=== PATIENT | female | born 1960 | race African-American/Black ===

== ENCOUNTER 2016-08-31 09:38 | Emergency (ER) | payer MEDICAID ==
[~2016-08-31] VITALS: Ht 166.4 cm; Wt 77.0 kg
[~2016-08-31 09:38] MED LIST changes: -METR500T PO
[2016-08-31 09:40] VITALS: Ht 166.4 cm; Wt 77.0 kg
--- OUTSIDE RECORDS SUMMARY | 2016-08-31 09:42 | XMS REPORT ---
Author Author GENERATED, SYSTEM Organization Unknown Address Unknown Phone Unavailable Care Team Providers Care Bag Sewer Name Role Phone DO OLGA LIDIA, SHARIF SIMPSON Unavailable Reason For Visit Chief Complaint BLODY FLUID CELL COUNT [id number], JOINT,FLUID FOR CRYSTALS 7611, FLUID CULTURE,[id number] , GRAM STAIN [id number] Social History Functional Status Vital Signs Results Problems Encounter Diagnosis No relevant problems exist. Encounters Encounter Diagnosis No relevant problems exist. Plan of Care Procedures * Completed Right knee arthroscopy with partial lateral menisectomy, Right, by MD ENZO HASSAN, on 12/07/2015 9:38 AM * Completed Procedure Code: [id number] Procedure Name: not valued, on 12/07/2015 12 :00 AM * Completed Procedure Code: [id number] Procedure Name: not valued, on 12/07/2015 12: 00 AM Immunizations No immunizations administered or ordered. Hospital Course Hospital Discharge Instructions Allergies, Adverse Reactions, Alerts * Sulfa (Sulfonamide Antibiotics) causes Hives. * Latex Allergy has not been assessed. * IV Contrast Allergy has not been assessed. Medication Medication reconciliation has not been performed.
--- OUTSIDE RECORDS SUMMARY | 2016-08-31 09:42 | XMS REPORT | Continuity of Care Document ---
Author Author [facility] Organization [facility] Address Unknown Phone Unavailable Care Team Providers Care Dimension Warehouse Supervisor Name Role Phone ISAIAS GAYTAN MD Primary Care Physician [phone] Insurance Providers Payer Name Policy Number Subscriber Name Relationship Self Pay Supa Deutsch 19 Self Advance Directives Directive Response Recorded Date/Time Advanced Directives Type None 09/13/13 7:30pm Dr Diez Resuscitation Status Full Code 12/10/13 10:39am Problems Medical Problems Problem Onset Date Status Sciatic pain Unknown Active Sciatic pain Unknown Active Salivary disorder Unknown Active Pain, dental Unknown Active Salivary disorder Unknown Active Carpal tunnel syndrome Unknown Active Right wrist pain Unknown Active Carpal tunnel syndrome Unknown Active Lumbar back sprain Unknown Active Lumbar back sprain Unknown Active Medications Medication Dose Route Sig Days/Qty Instructions Order Date Discontinued Date Status Fluoxetine Hcl 80 Mg PO DAILY 09/03/13 Active Quetiapine Fumarate 400 Mg PO DAILY 09/03/13 Active Trazodone HCl 100 Mg PO BEDTIME 11/17/13 Active Ranitidine HCl 150 Mg PO DAILY 12/10/13 Active Multivitamin/Iron/Folic Acid 1 Tab PO DAILY 12/10/13 Active Social History Social History Problem Response Recorded Date/Time Smoking Status Never smoker 09/13/2013 7:34pm When did patient START smoking? AGE 26-27 12/10/2013 10:17am When did patient STOP smoking? 1 MONTH AGO 12/10/2013 10:17am Chewing Tobacco Status No 09/13/2013 7:34pm Hx Substance Use No 12/10/2013 10:17am Hx Alcohol Use No 12/10/2013 10:17am Has the pt used tobacco in the last 12 months Yes 12/10/2013 10:17am Hospital Discharge Instructions No hospital discharge instructions. Plan of Care No plan of care. Functional Status Query Response Date Recorded Physical Hygiene Self November 17, 2013 1:51pm Physical Hygiene Self November 17, 2013 1:51pm Allergies, Adverse Reactions, Alerts Allergen Type Severity Reaction Status Last Updated Sulfa (Sulfonamide Antibiotics) Allergy Severe HIVES AND SWELLING Active 11/17/13 Red dye Allergy Unknown HIVES,SWELLING Active 12/10/13 Immunizations Name Given Type Hx Influenza Vaccination Y FALL 2012 Historical Hx Pneumococcal Vaccination No Historical Hx Influenza Vaccination fall Historical Vital Signs Acute Vital Signs Vital Response Date/Time Temperature (Fahrenheit) 97.4 deg F (96.8 - 99.1) Temperature (Calculated Celsius) 36.26605 degrees C (36.0 - 37.3) Temperature Source Temporal Pulse Rate (adult) 80 bpm (60 - 100) Respiratory Rate 18 breaths/min (10 - 20) O2 Sat by Pulse Oximetry 97 % (90 - 100) Oxygen Delivery Method Room Air Blood Pressure 120/72 mm Hg Blood Pressure Source Automatic Cuff Height 5 ft 4.5 in Weight 188 lb Body Mass Index 31.0 kg/m^2 Results Test Source Date Result Interp. Ref. Range Comments Urine Bilirubin September 03, 2013 3:30pm Negative - Has specimen been collected/obtained? Y Urine Blood September 03, 2013 3:30pm Negative - Has specimen been collected/obtained? Y Urine Collection Type September 03, 2013 3:30pm Voided-not cc-midstr - Has specimen been collected/obtained? Y Urine Color September 03, 2013 3:30pm Yellow - Has specimen been collected/ obtained? Y Urine Glucose (UA) September 03, 2013 3:30pm Negative - Has specimen been collected/obtained? Y Urine Ketones September 03, 2013 3:30pm Negative - Has specimen been collected/obtained? Y Urine Leukocyte Esterase September 03, 2013 3:30pm Negative - Has specimen been collected/obtained? Y Urine Nitrite September 03, 2013 3:30pm Negative - Has specimen been collected/obtained? Y Urine Protein September 03, 2013 3:30pm Negative - Has specimen been collected/obtained? Y Urine Specific [place] September 03, 2013 3:30pm >=1.030 H - Has specimen been collected/obtained? Y Urine Turbidity September 03, 2013 3:30pm Clear - Has specimen been collected/obtained? Y Urine Urobilinogen September 03, 2013 3:30pm 0.2 EU/DL - Has specimen been collected/obtained? Y Urine pH September 03, 2013 3:30pm 5.5 - Has specimen been collected/ obtained? Y Urinalysis Comment September 03, 2013 3:30pm Microscopic not ind. - Has specimen been collected/obtained? Y Name: SUPA DEUTSCH Unit #: [id number] : 1960 Sex: F Loc / Svc: ED DOS: 11/08/13 Signed Report #: [id number] DIAGNOSTIC IMAGING REPORT TYPE OF EXAM: WRIST RIGHT 3 VIEW Dictated By: SAAD MONGE MD INDICATION: ITS.REASON: right wrist pain ^right wrist pain COMPARISON: none. WRIST RIGHT 3 VIEW: There is no evidence of fracture, dislocation, or joint narrowing. IMPRESSION: Negative x-rays . Procedures Procedure Status Date Provider(s) COLONOSCOPY AND BIOPSY completed 11/22/13 JARRETT BROWN MD, FACS, CWS Carpal tunnel release completed 12/13/13 GARLAND HEADLEY MD Encounters Encounter Location Date/Time Departed Emergency Room [facility] 11/17/13 1:33pm Departed Emergency Room [facility] 11/08/13 6:43pm Registered Clinic [facility] 10/20/13 9:59am Departed Emergency Room [facility] 09/21/13 2:42pm
--- OUTSIDE RECORDS SUMMARY | 2016-08-31 09:42 | XMS REPORT | Continuity of Care Document ---
Author Author [facility] Organization [facility] Address Unknown Phone Unavailable Support Name Relationship Address Phone SHARIF MEADOWS MD Caregiver [facility] [address] [place] [address] Unavailable ISAIAS GAYTAN MD Caregiver [address] [place] [address] [phone] ELISE JURADO Next Of Kin [address] [place] [address] Insurance Providers Payer Name Policy Number Subscriber Name Relationship [facility] [employer] [facility] [id number] Supa Deutsch 19 Self Advance Directives Directive Response Recorded Date/Time Advanced Directives Type None 09/13/13 7:30pm Problems Medical Problems Problem Onset Date Status Sciatic pain Unknown Active Sciatic pain Unknown Active Salivary disorder Unknown Active Pain, dental Unknown Active Salivary disorder Unknown Active Carpal tunnel syndrome Unknown Active Right wrist pain Unknown Active Carpal tunnel syndrome Unknown Active Lumbar back sprain Unknown Active Lumbar back sprain Unknown Active Right wrist pain Unknown Active Bilateral thumb pain Unknown Active Medications Medication Dose Route Sig Days/Qty Instructions Order Date Discontinued Date Status Fluoxetine Hcl 80 Mg PO DAILY 09/03/13 Active Quetiapine Fumarate 400 Mg PO DAILY 09/03/13 Active Trazodone HCl 100 Mg PO BEDTIME 11/17/13 Active Ranitidine HCl 150 Mg PO DAILY 12/10/13 Active [Liver Detox] TWICE A DAY 04/30/14 Active Hydrocodone/Apap 7.5/325 Mg 1 Tab PO Every 6 Hours PRN PAIN 20 Qty 02/02 Active Social History Social History Problem Response Recorded Date/Time Chewing Tobacco Status No 09/13/2013 7:34pm Hx Substance Use No 04/30/2014 10:53am Hx Alcohol Use No 04/30/2014 10:53am Has the pt used tobacco in the last 12 months Yes 12/10/2013 10:17am Tobacco Usage smoke 09/16/2013 6:29pm Query Response Start Date Stop Date Smoking Status Never smoker Hospital Discharge Instructions No hospital discharge instructions. Plan of Care No plan of care. Functional Status Query Response Date Recorded Physical Hygiene Self April 30, 2014 10:53am Disabilities None April 30, 2014 10:53am Devices Used None April 30, 2014 10:53am Dressing Self April 30, 2014 10:53am Ambulation Self April 30, 2014 10:53am Diet Self April 30, 2014 10:53am Mental Status Alert April 30, 2014 10:53am Disabilities None April 30, 2014 10:53am Devices Used None April 30, 2014 10:53am Physical Hygiene Self April 30, 2014 10:53am Dressing Self April 30, 2014 10:53am Ambulation Self April 30, 2014 10:53am Diet Self April 30, 2014 10:53am Allergies, Adverse Reactions, Alerts Allergen Type Severity Reaction Status Last Updated Sulfa (Sulfonamide Antibiotics) Allergy Severe HIVES AND SWELLING Active 04/30/14 D&c red no. 7 Allergy Unknown HIVES,SWELLING Active 04/30/14 Immunizations Name Given Type Hx Influenza Vaccination Y 02/01 Historical Hx Pneumococcal Vaccination No Historical Hx Influenza Vaccination Y 02/01 Historical Vital Signs Acute Vital Signs Vital Response Date/Time Temperature (Fahrenheit) 97 deg F (96.8 - 99.1) Temperature (Calculated Celsius) 36.1140 degrees C (36.0 - 37.3) Pulse Rate (adult) 93 bpm (60 - 100) Respiratory Rate 20 breaths/min (10 - 20) O2 Sat by Pulse Oximetry 95 % (90 - 100) Blood Pressure 134/86 mm Hg Height (Feet) 5 feet Height (Inches) 4.50 inches Weight (Kilograms) 90.600 kg Body Mass Index (BMI) 33.0 Results Test Source Date Result Interp. Ref. [...] Has specimen been collected/obtained? Y Urine Specific [place] September 03, 2013 3:30pm >=1.030 H - [...] ind. - Has specimen been collected/obtained? Y Procedures No known history of procedures. Encounters Encounter Location Date/Time Departed Emergency Room [facility] 04/30/14 8:34am Departed Emergency Room [facility] 02/09/14 6:39am Recent Diagnosis
--- OUTSIDE RECORDS SUMMARY | 2016-08-31 09:43 | XMS REPORT | Summary of Care ---
Author Author Ab Hyde M.D. Unknown Address Unknown Phone Unavailable Care Team Providers Care Elevator Constructor Supervisor Name Role Phone Manuel Tavarez D.O. Unavailable Unavailable Piper Long APRN Unavailable Unavailable Jaida Hyde M.D. 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 difficile colitis (008.45, A04.7) Status: Active Sciatica of right side (724.3, M54.31) Status: Active Urticaria (708.9, L50.9) Status: Active Impetigo (684, L01.00) Status: Active Strain of right quadriceps muscle, fascia and tendon, init Status: Active Tear of medial meniscus of right knee, initial encounter Status: Active Nausea (787.02, R11.0) Status: Active Medial meniscus tear (836.0, S83.249A) Status: Active Status post knee surgery (V45.89, Z98.890) Status: Active Localized osteoarthritis of right knee (715.36, M17.9) Status: Active Effusion of bursa of right knee (719.06, M25.461) Status: Active Right knee pain (719.46, M25.561) Status: Active Need for prophylactic measure (V07.9, Z41.8) Status: Active Post-op pain (338.18, G89.18) Status: Active Aftercare following knee joint replacement surgery (V54.81, Z47.1) Status: Active Medications Name Dates Details SEROquel 400 MG Oral Tablet TAKE 1 TABLET AT BEDTIME. Manuel Tavarez D.O. * Start 30-Mar-2015 Active TraZODone HCl - 100 MG Oral Tablet TAKE 1 TABLET AT BEDTIME. * Quantity: 60 Refills: 0 Corby D.Manuel Hendricks * Start 30-Mar-2015 Active MetFORMIN HCl - 1000 MG Oral Tablet TAKE ONE TABLET BY MOUTH TWICE DAILY WITH MEALS. * Quantity: 180 Refills: 0 Corby Pardo.Manuel Hendricks * Start 27-May-2016 Active Multiple Vitamin TABS TAKE 1 TABLET DAILY. * Quantity: 90 Refills: 0 Corby Pardo.Manuel Hendricks * Start 26-May-2015 Active PROzac 40 MG Oral Capsule TAKE 2 CAPSULES DAILY. * Refills: 0 Corby Pardo.Manuel Hendricks * Start 26-May-2015 Active Mupirocin 2 % External Ointment APPLY SPARINGLY TO AFFECTED AREA(S) TWICE DAILY * Quantity: 1 Refills: 0 Piper Long APRN * Start 03-Jul-2015 Active 22 GM Tube Omeprazole 20 MG Oral Capsule Delayed Release TAKE ONE CAPSULE BY MOUTH ONCE DAILY IN THE MORNING BEFORE BREAKFAST. * Quantity: 30 Refills: 3 Corby Pardo.Manuel Hendricks * Start 15-May-2016 Active Supplies PHYSICAL THERAPY, EVALUATE AND TREAT DX RIGHT QUAD STRAIN * Quantity: 1 Refills: 0 Corby Pardo.Manuel Hendricks * Start 19-Sep-2015 Active Test Strips CHECK BLOOD SUGAR TWICE A DAY, RELION CONFIRM/MICRO GLU TEST DX E11.9 * Quantity: 300 Refills: 3 Corby Pardo.Manuel Hendricks * Start 21-Nov-2015 Active Xarelto 10 MG Oral Tablet Take 1 tablet daily * Quantity: 10 Refills: 0 Ab Hyde M.D. Start 13-Jun-2016 Active Hydrocodone-Acetaminophen 10-325 MG Oral Tablet Take 1/2 - 1 tablet PO q 4-6 hrs PRN pain * Quantity: 60 Refills: 0 Ab Hyde M.D. Start 13-Jun-2016 Active Oxycodone-Acetaminophen 10-325 MG Oral Tablet 1/2 to 1 tab po q 4-6 prn * Quantity: 50 Refills: 0 Ab Hyde M.D. Start 02-Jul-2016 Active Zolpidem Tartrate 10 MG Oral Tablet TAKE 1 TABLET AT BEDTIME NEEDED. * Quantity: 30 Refills: 0 Ab Hyde M.D. * Chiki 02-Jul-2016 Active Allergies and Adverse Reactions Name Dates Details Sulfa Drugs (Allergy) Status: Active Past Medical History Name Dates Details History of Effusion of bursa of right knee (719.06, M25.461) Status: Resolved Procedures Procedure Dates Details History of Hysterectomy ORTHO KNEE RIGHT (3 VIEWS ONLY) Ordered: 22-May-2016 ORTHO KNEE RIGHT (3 VIEWS ONLY) Ordered: 28-Jun-2016 Immunization Name Dates Details Immunizations not documented Social History Name Dates Details - Status: Name Dates Details Current every day smoker Current every day smoker Vital Signs Date Test Result Details No Known Vitals to report Results Date Description Value Details Results not documented Plan of Care Name Dates Details Planned Observations Planned Goals not documented Interventions Provided Medication Changes* Oxycodone-Acetaminophen 10-325 MG Oral Tablet - Start * Zolpidem Tartrate 10 MG Oral Tablet - Start Labs/Procedures/Imaging* ORTHO KNEE RIGHT (3 VIEWS ONLY); To be Done: 02 Jul 2016 Instructions Name Dates Details Instructions not documented Encounters Appointment; Ab Hyde M.D. Encounter Diagnosis: Problem not documented On 20-Jun-2016 13:45 Appointment; Ab Hyde M.D. Encounter Diagnosis: Problem not documented On 28-May-2016 09:45 Appointment; Bhavesh Arreguin M.D. Encounter Diagnosis: Problem not documented On 22-May-2016 13:00 Appointment; Bhavesh Arreguin M.D. Encounter Diagnosis: Problem not documented On 27-Mar-2016 13:45 Appointment; Bhavesh Arreguin M.D. Encounter Diagnosis: Problem not documented On 19-Feb-2016 10:15 Appointment; Bhavesh Arreguin M.D. Encounter Diagnosis: Problem not documented On 12-Feb-2016 14:00 Appointment; Bhavesh Arreguin M.D. Encounter Diagnosis: Problem not documented On 05-Feb-2016 09:30 Appointment; Bhavesh Arreguin M.D. Encounter Diagnosis: Problem not documented On 24-Jan-2016 11:15 Appointment; Bhavesh Arreguin M.D. Encounter Diagnosis: Problem not documented On 27-Dec-2015 11:00 Appointment; Bhavesh Arreguin M.D. Encounter Diagnosis: Problem not documented On 13-Dec-2015 12:45 Appointment; Bhavesh Arreguin M.D. Encounter Diagnosis: Problem not documented On 06-Dec-2015 12:45 Appointment; Bhavesh Arreguin M.D. Encounter Diagnosis: Problem not documented On 22-Nov-2015 09:30 Appointment; Becky Rodriguez P.T.A. Encounter Diagnosis: Problem not documented On 20-Nov-2015 10:30 Appointment; Becky Rodriguez P.T.A. Encounter Diagnosis: Problem not documented On 16:30 Appointment; Manuel Tavarez D.O. Encounter Diagnosis: Problem not documented On 16:00 Appointment; Becky Rodriguez P.T.A. Encounter Diagnosis: Problem not documented On 15:30 Appointment; Aris Knowles P.T. Encounter Diagnosis: Problem not documented On 13:00 Appointment; Manuel Tavarez D.O. Encounter Diagnosis: Problem not documented On 14:30 Appointment; Manuel Tavarez D.O. Encounter Diagnosis: Problem not documented On 14:00 Appointment; Manuel Tavarez D.O. Encounter Diagnosis: Problem not documented On 19-Sep-2015 10:45 Appointment; Piper Long A.P.R.N. Encounter Diagnosis: Problem not documented On 30-Jun-2015 14:20 Appointment; Manuel Tavarez D.O. Encounter Diagnosis: Problem not documented On 30-Jun-2015 14:00 Appointment; Manuel Tavarez D.O. Encounter Diagnosis: Problem not documented On 23-Jun-2015 10:30 Appointment; Manuel Tavarez D.O. Encounter Diagnosis: Problem not documented On 26-May-2015 11:00 Appointment; Manuel Tavarez D.O. Encounter Diagnosis: Problem not documented On 18-May-2015 10:15 Appointment; Aris Knowles P.T. Encounter Diagnosis: Problem not documented On 08-May-2015 11:30 Appointment; Aris Knowles P.T. Encounter Diagnosis: Problem not documented On 17-Apr-2015 08:30 Appointment; Manuel Tavarez D.O. Encounter Diagnosis: Problem not documented On 30-Mar-2015 09:15
--- OUTSIDE RECORDS SUMMARY | 2016-08-31 09:44 | XMS REPORT | Continuity of Care Document ---
Author Author [facility] Organization [facility] Address Unknown Phone Unavailable Allergies Active Description Code Type Severity Reaction Onset Reported/Identified Relationship to Patient Clinical Status Yes Sulfa (Sulfonamide Antibiotics Drug Allergy Adverse Reaction 05/17/2009 Yes red dye Drug Allergy Adverse Reaction 11/03/2011 Yes No Known Food Allergies Food Allergy 07/02/2012 Medications Problems Date Dx Coded Attending Type Code Diagnosis Diagnosed By 02/06/2012 Cesar Nelson MD 787.91 DIARRHEA 07/02/2012 Clarke Dela Cruz MD Final 305.1 TOBACCO USE DISORDER 07/02/2012 Clarke Dela Cruz MD Final 562.10 COLON DIVERTICULOSIS 07/02/2012 Clarke Dela Cruz MD Admitting 789.03 RLQ ABDOMINAL PAIN 07/02/2012 Clarke Dela Cruz MD 789.09 ABDOMINAL PAIN-SITE NEC 08/07/2012 Adan ALVARADO, J Blayne F 296.20 DEPRESS DISORDER-UNSPEC 08/07/2012 Adan ALVARADO, J Blayne F 305.1 TOBACCO USE DISORDER 08/07/2012 Adan ALVARADO, J Blayne F 305.20 CANNABIS ABUSE-UNSPEC 08/07/2012 Adan ALVARADO, J Blayne F 530.81 ESOPHAGEAL REFLUX 08/07/2012 Adan ALVARADO, J Blayne F 535.50 UNSP GASTRITIS GASTRODUODENITIS W/O MENTN HEMORG 08/07/2012 Adan ALVARADO, J Blayne F 584.9 ACUTE RENAL FAILURE, UNSPECIFIED 08/07/2012 Adan ALVARADO, J Blayne A 789.06 ABDOMINAL PAIN, EPIGASTRIC Procedures Results Test Result Range URINE CULTURE - 05/04/12 00:00 Uncategorized UR TEST - 05/04/12 10:53 UR TEST NEGATIVE NEGATIVE UA MICROSCOPIC - 05/04/12 10:53 UA BACTERIA 5+ NEGATIVE UA EPITHELIAL CELLS 5+ epi/hpf 0 - 1+ UA RBC 20-50 rbc/hpf 0 - 3 UA VOLUME FOR EXAM 12.0 mL (12mL STD) UA WBC PACKED FIELD wbc/hpf 0 - 5 WBC CLUMPS PRESENT NEGATIVE WET MOUNT - 05/04/12 12:30 Uncategorized GRAM STAIN - CHLAMYDIA DNA BY PCR - 05/04/12 12:30 Uncategorized CBC - 08/07/12 05:26 MEAN CELL HGB 31.1 pg 27.0-33.0 MEAN CELL HGB CONCENTRATION 32.1 g/dL 32.0-37.0 MEAN CELL VOLUME 96.9 fl 80.0-100.0 RED BLOOD CELL 4.50 m/cumm 4.00-6.00 RED CELL DISTRIBUTION WIDTH 13.8 % 11.0- 15.6 WHITE BLOOD CELL 10.0 k/cumm 5.0-10.0 HEMOGLOBIN 14.0 gm/dL 12.0-16.0 HEMATOCRIT 43.6 % 37.0-47.0 PLATELET COUNT 266 k/cumm 150-400 LIPASE - 08/07/12 05:26 LIPASE 220 Units/L 73-393 HEPATIC FUNCTION PANEL - 08/07/12 05:26 BILI UNCONJUGATED 0.2 mg/dL 0.0-0.7 AST/SGOT 17 Units/L 10-37 ALT/SGPT 23 Units/L < 66 TOTAL PROTEIN 7.7 gm/dL 6.4-8.2 ALBUMIN 3.8 gm/dL 3.4-5.0 BILI TOTAL 0.3 mg/dL 0.0-1.0 ALKALINE PHOSPHATASE TOTAL 128 Units/L 50 -136 BILI CONJUGATED 0.1 mg/dL 0.0-0.3 D-DIMER QUANT - 08/07/12 05:26 D-DIMER QUANT < 150 ng/mL 0-229 CHEM/HEM PROFILE-BEDSIDE - 08/07/12 05:30 POTASSIUM 3.9 mmol/L 3.5-5.3 METHOD Bedside ANION GAP 15 mmol/L 10-20 METHOD Bedside GLUCOSE 108 mg/dL 70-99 BLOOD UREA NITROGEN 18 mg/dL 7-20 CREATININE 1.2 mg/dL 0.6-1.0 HEMOGLOBIN 13.9 gm/dL 12.0-16.0 HEMATOCRIT 41.0 % 37.0-47.0 SODIUM 141 mmol/L 135-148 CHLORIDE 107 mmol/L 98-110 CARBON DIOXIDE 24 mmol/L 21-32 CALCIUM IONIZED 4.9 mg/dL 4.5-5.3 TROPONIN I BEDSIDE - 08/07/12 05:33 METHOD Bedside TROPONIN I < 0.04 ng/mL < 0.11 MRSA SURVEILLANCE SCREEN - 08/07/12 08:59 Uncategorized CREATINE KINASE (CK/CPK) - 08/07/12 12:30 CREATINE KINASE (CK/CPK) 64 Units/L < 193 CK MB - 08/07/12 12:30 CK MB 0.6 ng/mL < 4.0 TROPONIN I - 08/07/12 12:30 TROPONIN I < 0.02 ng/mL < 0.07 CREATINE KINASE (CK/CPK) - 08/07/12 18:00 CREATINE KINASE (CK/CPK) 56 Units/L < 193 CK MB - 08/07/12 18:00 CK MB 0.8 ng/mL < 4.0 TROPONIN I - 08/07/12 18:00 TROPONIN I < 0.02 ng/mL < 0.07 RENAL FUNCTION PANEL - 08/08/12 02:45 POTASSIUM 4.2 mmol/L 3.5-5.3 EST GFR (MDRD) > 60 mL/min > 59 ANION GAP 8 mmol/L 5-15 EST CrCl (CG) 54 mL/min > 59 GLUCOSE 89 mg/dL 70-99 CALCIUM 8.3 mg/dL 8.5-10.1 BLOOD UREA NITROGEN 12 mg/dL 7-20 CREATININE 1.1 mg/dL 0.6-1.0 SODIUM 142 mmol/L 135-148 CHLORIDE 108 mmol/L 98-110 CARBON DIOXIDE 26 mmol/L 21-32 ALBUMIN 3.1 gm/dL 3.4-5.0 PHOSPHORUS 3.4 mg/dL 2.5-4.9 LIPID PANEL - 08/08/12 02:45 CHOLESTEROL/HDL RATIO 7.2 < 5.0 LDL CHOLESTEROL 132 mg/dL < 100 VLDL CHOLESTEROL 48 mg/dL < 30 TRIGLYCERIDES 242 mg/dL < 150 CHOLESTEROL 209 mg/dL < 200 HDL CHOLESTEROL 29 mg/dL > 39 MAGNESIUM - 08/08/12 02:45 MAGNESIUM 1.8 mg/dL 1.8-2.4 THYROID STIM HORMONE (TSH) - 08/08/12 02:45 THYROID STIM HORMONE (TSH) 2.15 uIU/mL 0.34-4.82 CBC W/DIFF - 08/08/12 02:49 EOSINOPHIL # 0.2 k/cumm 0.1-0.5 EOSINOPHIL % 3 % 2-4 GRANULOCYTE # 3.4 k/cumm 2.0-9.0 GRANULOCYTE % 52 % 50-75 LYMPHOCYTE # 2.4 k/cumm 1.0-4.0 LYMPHOCYTE % 37 % 20-30 MEAN CELL HGB 31.2 pg 27.0-33.0 MEAN CELL HGB CONCENTRATION 31.6 g/dL 32.0-37.0 MEAN CELL VOLUME 99.0 fl 80.0-100.0 MONOCYTE # 0.5 k/cumm 0.1-1.0 MONOCYTE % 8 % 4-6 RED BLOOD CELL 3.97 m/cumm 4.00-6.00 RED CELL DISTRIBUTION WIDTH 13.5 % 11.0- 15.6 WHITE BLOOD CELL 6.5 k/cumm 5.0-10.0 HEMOGLOBIN 12.4 gm/dL 12.0-16.0 HEMATOCRIT 39.3 % 37.0-47.0 PLATELET COUNT 217 k/cumm 150-400 CREATINE KINASE (CK/CPK) - 08/08/12 02:49 CREATINE KINASE (CK/CPK) 53 Units/L < 193 CK MB - 08/08/12 02:49 CK MB 0.7 ng/mL < 4.0 TROPONIN I - 08/08/12 02:49 TROPONIN I < 0.02 ng/mL < 0.07 URINALYSIS WITH MICROSCOPIC - 08/08/12 10:40 UA LEUKOCYTE ESTERASE DIPSTICK NEGATIVE NEGATIVE UA NITRITE DIPSTICK NEGATIVE NEGATIVE UA PROTEIN DIPSTICK NEGATIVE NEGATIVE UA GLUCOSE DIPSTICK NEGATIVE NEGATIVE UA KETONE DIPSTICK NEGATIVE NEGATIVE UA UROBILINOGEN DIPSTICK NORMAL NORMAL UA BILIRUBIN DIPSTICK NEGATIVE NEGATIVE UA BLOOD DIPSTICK NEGATIVE NEGATIVE UA RBC 0-3 rbc/hpf 0 - 3 UA VOLUME FOR EXAM 12.0 mL (12mL STD) UA WBC 0 wbc/hpf 0 - 5 UA SPECIFIC GRAVITY 1.009 1.015-1.025 UR PH 5.0 5.0-7.0 UR DRUGS OF ABUSE SCREEN - 08/08/12 10:40 UR AMPHETAMINES SCREEN NEG (<1000 ng/mL) NEGATIVE UR BARBITURATE SCREEN NEG (< 200 ng/mL) NEGATIVE DRUGS OF ABUSE SCREEN COMMENT UR OPIATES SCREEN POS (> 300 ng/mL) NEGATIVE UR PHENCYCLIDINE (PCP) SCREEN NEG (< 25 ng/mL) NEGATIVE UR CANNABINOIDS (THC) SCREEN NEG (< 50 ng/mL) NEGATIVE UR COCAINE METABOLITE SCREEN NEG (< 300 ng/mL) NEGATIVE UR METHADONE SCREEN NEG (< 300 ng/mL) NEGATIVE UR BENZODIAZEPINE SCREEN NEG (< 200 ng/mL) NEGATIVE URINE CULTURE - 08/08/12 10:40 Uncategorized TYPE AND SCREEN - 06/17/16 07:40 ANTIBODY SCREEN (Indirect Wilson) NEG NRG *ABO GROUP O NRG RH TYPE POS NRG CBC WITH PLATELET AND DIFFERENTIAL - 06/17/16 08:40 SEGS 44.6 % NRG *BASOPHILS 0.6 % NRG *EOSINOPHILS 2.7 % NRG AUTOMATED DIFF PERFORMED NRG *LYMPHOCYTES 43.4 % NRG *MONOCYTES 8.7 % NRG *ABSOLUTE BASOPHILS 0.00 10*3/uL 0.00- 0.20 *ABSOLUTE EOSINOPHILS 0.20 10*3/uL 0.00- 0.50 *ABSOLUTE LYMPHOCYTES 3.10 10*3/uL 1.00- 3.00 *ABSOLUTE MONOCYTES 0.60 10*3/uL 0.30- 1.00 *ABSOLUTE NEUTROPHILS 3.20 10*3/uL 1.80- 7.80 MPV 7.5 fL 7.4-10.4 PLATELETS 247 10*3/uL 159-386 WBC 7.2 10*3/uL 3.6-11.2 RBC 4.25 3.63-4.92 HEMOGLOBIN 13.1 11.0-14.3 HEMATOCRIT 39.6 % 31.2-41.9 MCV 93.2 fL 79.0-98.0 MCH 30.8 pg 27.0-33.0 MCHC 33.0 32.0-36.0 RDW 14.7 % 12.3-17.0 RDWSD 48.6 37.1-47.8 URINALYSIS (CULTURE PRN) - 06/18/16 03:26 *URINE APPEARANCE CLEAR CLEAR *URINE BILIRUBIN NEGATIVE NEGATIVE *URINE BLOOD SMALL NEGATIVE *URINE GLUCOSE NEGATIVE NEGATIVE *URINE KETONES NEGATIVE NEGATIVE *URINE LEUKOCYTES NEGATIVE NEGATIVE *URINE NITRITES NEGATIVE NEGATIVE URINE PH 5.5 5.0-8.0 *URINE PROTEIN NEGATIVE NEGATIVE URINE SPECIFIC GRAVITY 1.025 <=1.005->= 1.030 *URINE UROBILINOGEN 0.2 0.2-1.0 *URINE COLOR YELLOW STRAW/YELL/DK YELL URINE MICROSCOPIC - 06/18/16 03:26 RBC 0-1 /[HPF] 0-1 MUCOUS THREADS MANY /[LPF] NEGATIVE MICROSCOPIC EXAM PERFORMED PERFORMED NRG SQUAMOUS EP. CELLS FEW /[LPF] NEG-FEW BACTERIA FEW /[HPF] NEGATIVE HEMOGLOBIN AND HEMATOCRIT - 06/18/16 05:14 HEMOGLOBIN 10.7 11.0-14.3 HEMATOCRIT 32.0 % 31.2-41.9 BASIC METABOLIC PANEL - 06/18/16 05:14 SODIUM 135 mmol/L 136-145 POTASSIUM 4.4 mmol/L 3.5-5.1 CHLORIDE 101 mmol/L 98-107 TCO2 25.8 mmol/L 21.0-32.0 *ANION GAP 8.2 mmol/L 8.0-16.0 BUN 14 7-18 CREATININE 1.00 0.55-1.02 *BUN/CREATININE RATIO 14.0 9.1-17.0 GLUCOSE 126 65-99 CALCIUM 8.7 8.5-10.1 GFR ESTIMATION - 06/18/16 05:14 *GFR EST NON AFR JORDANIAN 63 mL/min NRG *GRFA EST AFR AMER 74 mL/min NRG HEMOGLOBIN AND HEMATOCRIT - 06/19/16 05:04 HEMOGLOBIN 9.4 11.0-14.3 HEMATOCRIT 27.8 % 31.2-41.9 BASIC METABOLIC PANEL - 06/19/16 05:04 SODIUM 134 mmol/L 136-145 POTASSIUM 4.0 mmol/L 3.5-5.1 CHLORIDE 99 mmol/L 98-107 TCO2 26.9 mmol/L 21.0-32.0 *ANION GAP 8.1 mmol/L 8.0-16.0 BUN 8 7-18 CREATININE 0.90 0.55-1.02 *BUN/CREATININE RATIO 8.9 9.1-17.0 GLUCOSE 121 65-99 CALCIUM 8.6 8.5-10.1 GFR ESTIMATION - 06/19/16 05:04 *GFR EST NON AFR JORDANIAN 72 mL/min NRG *GRFA EST AFR AMER 84 mL/min NRG Encounters
--- OUTSIDE RECORDS SUMMARY | 2016-08-31 09:44 | XMS REPORT ---
Author Author GENERATED, SYSTEM Organization Unknown Address Unknown Phone Unavailable Care Team Providers Care Instructional Paraprofessional Name Role Phone DO DUGGAN ROBERT PP Unavailable Reason For Visit Reason for Visit from 06/17/2016 6:30 AM:* Pt Stated Reason for Adm : "right total knee" Chief Complaint OSTEOARTHRITIS OF KNEE Social History Social History from 06/19/2016 2:05 PM:* Tobacco Use? : Current Everyday Smoker Social History from 06/17/2016 6:30 AM:* Tobacco Use? : Current Everyday Smoker Functional Status Functional Status from 06/19/2016 9:45 AM:* LOC : Alert * Oriented To : Person,Place,Time,Event * Weight Bearing Status : Full * Assist Level : Independent * # Assists : 1 Functional Status from 06/19/2016 9:37 AM:* # Assists : 1 Functional Status from 06/18/2016 9:15 PM:* LOC : Alert * Oriented To : Person,Place,Time,Event * Weight Bearing Status : Full * Assist Level : Independent * # Assists : 1 Functional Status from 06/18/2016 12:33 PM:* # Assists : 1 Functional Status from 06/18/2016 9:04 AM:* Oriented To : Person,Place,Time Functional Status from 06/18/2016 7:55 AM:* LOC : Alert * Oriented To : Person,Place,Time,Event * Weight Bearing Status : Full * Assist Level : Partial * # Assists : 1 Functional Status from 06/17/2016 7:25 PM:* LOC : Alert * Oriented To : Person,Place,Time,Event * Weight Bearing Status : Full * Assist Level : Partial * # Assists : 1 Functional Status from 06/17/2016 7:09 PM:* # Assists : 1 Functional Status from 06/17/2016 12:10 PM:* LOC : Alert * Oriented To : Person,Place,Time,Event * Weight Bearing Status : Full * Assist Level : Partial * # Assists : 2 Functional Status from 06/17/2016 11:24 AM:* LOC : Drowsy Functional Status from 06/17/2016 10:37 AM:* LOC : Drowsy Functional Status from 06/17/2016 6:30 AM:* LOC : Alert * Oriented To : Person,Place,Time,Event * Weight Bearing Status : Full * Assist Level : Independent * # Assists : Independent Vital Signs Hospital Vital Signs from 06/19/2016 3:56 PM:* Height : 5/4.5 ft,in * Temperature : 98.0 F * Pulse : 110 * Respirations : 16 * BP : 105/62 Hospital Vital Signs from 06/19/2016 6:06 AM:* Height : 5/4.5 ft,in * Temperature : 98.9 F * Pulse : 109 * Respirations : 16 * BP : 108/66 Hospital Vital Signs from 06/19/2016 12:03 AM:* Height : 5/4.5 ft,in * Temperature : 99.8 F * Pulse : 98 * Respirations : 16 * BP : 138/77 Hospital Vital Signs from 06/18/2016 3:29 PM:* Height : 5/4.5 ft,in * Temperature : 99.0 F * Pulse : 93 * Respirations : 16 * BP : 130/82 Hospital Vital Signs from 06/18/2016 9:59 AM:* Height : 5/4.5 ft,in Hospital Vital Signs from 06/18/2016 6:35 AM:* Height : 5/4.5 ft,in * Temperature : 98.5 F * Pulse : 93 * Respirations : 16 * BP : 132/87 Hospital Vital Signs from 06/17/2016 10:04 PM:* Height : 5/4.5 ft,in * Temperature : 99.3 F * Pulse : 93 * Respirations : 18 * BP : 159/94 Hospital Vital Signs from 06/17/2016 7:09 PM:* Height : 5/4.5 ft,in * Temperature : 99.8 F * Pulse : 99 * Respirations : 20 * BP : 153/84 Hospital Vital Signs from 06/17/2016 6:12 PM:* Height : 5/4.5 ft,in * Temperature : 98.7 F * Pulse : 96 * Respirations : 18 * BP : 154/98 Hospital Vital Signs from 06/17/2016 4:23 PM:* Height : 5/4.5 ft,in * Temperature : 98.7 F * Pulse : 102 * Respirations : 18 * BP : 140/85 Hospital Vital Signs from 06/17/2016 3:20 PM:* Height : 5/4.5 ft,in * Temperature : 97.2 F * Pulse : 98 * Respirations : 18 * BP : 131/89 Hospital Vital Signs from 06/17/2016 2:20 PM:* Height : 5/4.5 ft,in * Pulse : 98 * Respirations : 18 * BP : 126/71 Hospital Vital Signs from 06/17/2016 1:50 PM:* Height : 5/4.5 ft,in * Pulse : 100 * Respirations : 18 * BP : 127/77 Hospital Vital Signs from 06/17/2016 1:20 PM:* Height : 5/4.5 ft,in * Pulse : 107 * Respirations : 18 * BP : 125/76 Hospital Vital Signs from 06/17/2016 1:05 PM:* Height : 5/4.5 ft,in * Pulse : 108 * Respirations : 18 * BP : 133/86 Hospital Vital Signs from 06/17/2016 12:50 PM:* Height : 5/4.5 ft,in * Pulse : 96 * Respirations : 18 * BP : 119/72 Hospital Vital Signs from 06/17/2016 12:35 PM:* Height : 5/4.5 ft,in * Pulse : 93 * Respirations : 18 * BP : 107/71 Hospital Vital Signs from 06/17/2016 12:20 PM:* Height : 5/4.5 ft,in * Temperature : 97.4 F * Pulse : 87 * Respirations : 18 * BP : 111/73 Hospital Vital Signs from 06/17/2016 11:50 AM:* Heart Rate : 92 * Resp Rate : 12 * Systolic BP (mmHg) : 101 * Diastolic BP (mmHg) : 72 * Mean BP (mmHg) : 86 * O2 Saturation (%) : 97 Hospital Vital Signs from 06/17/2016 11:40 AM:* Heart Rate : 93 * Resp Rate : 13 * Systolic BP (mmHg) : 102 * Diastolic BP (mmHg) : 69 * Mean BP (mmHg) : 80 * O2 Saturation (%) : 96 Hospital Vital Signs from 06/17/2016 11:35 AM:* Temp : 97.7 * Heart Rate : 91 * Resp Rate : 12 * Systolic BP (mmHg) : 109 * Diastolic BP (mmHg) : 70 * Mean BP (mmHg) : 81 * O2 Saturation (%) : 96 Hospital Vital Signs from 06/17/2016 11:30 AM:* Heart Rate : 90 * Resp Rate : 13 * Systolic BP (mmHg) : 103 * Diastolic BP (mmHg) : 62 * Mean BP (mmHg) : 79 * O2 Saturation (%) : 96 Hospital Vital Signs from 06/17/2016 11:25 AM:* Heart Rate : 91 * Resp Rate : 12 * Systolic BP (mmHg) : 107 * Diastolic BP (mmHg) : 69 * Mean BP (mmHg) : 84 * O2 Saturation (%) : 96 Hospital Vital Signs from 06/17/2016 11:20 AM:* Heart Rate : 91 * Resp Rate : 14 * Systolic BP (mmHg) : 108 * Diastolic BP (mmHg) : 69 * Mean BP (mmHg) : 81 * O2 Saturation (%) : 97 Hospital Vital Signs from 06/17/2016 11:15 AM:* Temp : 98.3 * Heart Rate : 90 * Resp Rate : 10 * Systolic BP (mmHg) : 109 * Diastolic BP (mmHg) : 66 * Mean BP (mmHg) : 83 * O2 Saturation (%) : 97 Hospital Vital Signs from 06/17/2016 11:10 AM:* Heart Rate : 92 * Resp Rate : 12 * Systolic BP (mmHg) : 111 * Diastolic BP (mmHg) : 67 * Mean BP (mmHg) : 84 * O2 Saturation (%) : 97 Hospital Vital Signs from 06/17/2016 11:05 AM:* Heart Rate : 90 * Resp Rate : 13 * Systolic BP (mmHg) : 124 * Diastolic BP (mmHg) : 74 * Mean BP (mmHg) : 98 * O2 Saturation (%) : 97 Hospital Vital Signs from 06/17/2016 11:00 AM:* Heart Rate : 94 * Resp Rate : 13 * Systolic BP (mmHg) : 101 * Diastolic BP (mmHg) : 67 * Mean BP (mmHg) : 77 * O2 Saturation (%) : 92 Hospital Vital Signs from 06/17/2016 10:55 AM:* Temp : 97.3 * Heart Rate : 95 * Resp Rate : 15 * Systolic BP (mmHg) : 105 * Diastolic BP (mmHg) : 71 * Mean BP (mmHg) : 85 * O2 Saturation (%) : 92 Hospital Vital Signs from 06/17/2016 10:50 AM:* Heart Rate : 93 * Resp Rate : 12 * Systolic BP (mmHg) : 113 * Diastolic BP (mmHg) : 69 * Mean BP (mmHg) : 86 * O2 Saturation (%) : 96 Hospital Vital Signs from 06/17/2016 10:45 AM:* Heart Rate : 93 * Resp Rate : 10 * Systolic BP (mmHg) : 107 * Diastolic BP (mmHg) : 70 * Mean BP (mmHg) : 79 * O2 Saturation (%) : 96 Hospital Vital Signs from 06/17/2016 10:40 AM:* Heart Rate : 94 * Resp Rate : 12 * Systolic BP (mmHg) : 122 * Diastolic BP (mmHg) : 77 * Mean BP (mmHg) : 87 * O2 Saturation (%) : 96 Hospital Vital Signs from 06/17/2016 10:37 AM:* Temp : 97.8 * Heart Rate : 93 * Resp Rate : 13 * Systolic BP (mmHg) : 126 * Diastolic BP (mmHg) : 79 * Mean BP (mmHg) : 91 * O2 Saturation (%) : 96 Hospital Vital Signs from 06/17/2016 6:53 AM:* Weight : 79.8/ kg * Height : 5/4.5 ft,in * Temperature : 97.2 F * Pulse : 92 * Respirations : 18 * BP : 109/89 Hospital Vital Signs from 06/17/2016 6:30 AM:* Weight : 80.90/ kg * Height : 5/4.5 ft,in Results Chemistry from 06/19/2016 5:04 AMSODIUM 134 MMOL/L L (136-145 MMOL/L) POTASSIUM 4.0 MMOL/L (3.5-5.1 MMOL/L) CHLORIDE 99 MMOL/L (98-107 MMOL/L) TCO2 26.9 MMOL/L (21.0-32.0 MMOL/L) *ANION GAP 8.1 MMOL/L (8.0-16.0 MMOL/L) BUN 8 MG/DL (7-18 MG/DL) CREATININE 0.90 MG/DL (0.55-1.02 MG/DL) *BUN/CREATININE RATIO 8.9 L (9.1-17.0 ) GLUCOSE 121 MG/DL H (65-99 MG/DL) *GFR EST NON AFR GUYANESE 72 ML/MIN *GFR EST AFR AMER 84 ML/MIN CALCIUM 8.6 MG/DL (8.5-10.1 MG/DL) Chemistry from 06/18/2016 5:14 AMSODIUM 135 MMOL/L L (136-145 MMOL/L) POTASSIUM 4.4 MMOL/L (3.5-5.1 MMOL/L) CHLORIDE 101 MMOL/L (98-107 MMOL/L) TCO2 25.8 MMOL/L (21.0-32.0 MMOL/L) *ANION GAP 8.2 MMOL/L (8.0-16.0 MMOL/L) BUN 14 MG/DL (7-18 MG/DL) CREATININE 1.00 MG/DL (0.55-1.02 MG/DL) *BUN/CREATININE RATIO 14.0 (9.1-17.0 ) GLUCOSE 126 MG/DL H (65-99 MG/DL) *GFR EST NON AFR GUYANESE 63 ML/MIN *GFR EST AFR AMER 74 ML/MIN CALCIUM 8.7 MG/DL (8.5-10.1 MG/DL) Hematology from 06/19/2016 5:04 AMHEMOGLOBIN 9.4 G/DL L (11.0-14.3 G/DL) HEMATOCRIT 27.8 % L (31.2-41.9 %) Hematology from 06/18/2016 5:14 AMHEMOGLOBIN 10.7 G/DL L (11.0-14.3 G/DL) HEMATOCRIT 32.0 % (31.2-41.9 %) Hematology from 06/17/2016 8:40 AMWBC 7.2 X10e3/UL (3.6-11.2 X10e3/UL) RBC 4.25 X10e6/UL (3.63-4.92 X10e6/UL) HEMOGLOBIN 13.1 G/DL (11.0-14.3 G/DL) HEMATOCRIT 39.6 % (31.2-41.9 %) *MCV 93.2 FL (79.0-98.0 FL) *MCH 30.8 PG (27.0-33.0 PG) *MCHC 33.0 G/DL (32.0-36.0 G/DL) *RDW 14.7 % (12.3-17.0 %) *RDWSD 48.6 H (37.1-47.8 ) PLATELET 247 X10e3/UL (159-386 X10e3/UL) *MPV 7.5 FL (7.4-10.4 FL) AUTOMATED DIFF PERFORMED SEGS 44.6 % *LYMPHOCYTES 43.4 % *MONOCYTES 8.7 % *EOSINOPHILS 2.7 % *BASOPHILS 0.6 % *ABSOLUTE NEUTROPHILS 3.20 X10e3/UL (1.80-7.80 X10e3/UL) *ABSOLUTE LYMPHOCYTES 3.10 X10e3/UL H (1.00-3.00 X10e3/UL) *ABSOLUTE MONOCYTES 0.60 X10e3/UL (0.30-1.00 X10e3/UL) *ABSOLUTE EOSINOPHILS 0.20 X10e3/UL (0.00-0.50 X10e3/UL) *ABSOLUTE BASOPHILS 0.00 X10e3/UL (0.00-0.20 X10e3/UL) Urinalysis from 06/18/2016 3:26 AM*URINE COLOR YELLOW (STRAW/YELL/DK YELL ) *URINE APPEARANCE CLEAR (CLEAR ) URINE PH 5.5 (5.0-8.0 ) URINE SPECIFIC GRAVITY 1.025 (<=1.005->=1.030 ) *URINE GLUCOSE NEGATIVE MG/DL (NEGATIVE MG/DL) *URINE BILIRUBIN NEGATIVE (NEGATIVE ) *URINE KETONES NEGATIVE MG/DL (NEGATIVE MG/DL) *URINE BLOOD SMALL A (NEGATIVE ) *URINE PROTEIN NEGATIVE MG/DL (NEGATIVE MG/DL) *URINE UROBILINOGEN 0.2 EU/DL (0.2-1.0 EU/DL) *URINE NITRITES NEGATIVE (NEGATIVE ) *URINE LEUKOCYTES NEGATIVE (NEGATIVE ) *MICROSCOPIC EXAM PERFORMED PERFORMED *RBC URINE 0-1 /HPF (0-1 /HPF) *SQUAMOUS EP. CELLS FEW /LPF (NEG-FEW /LPF) *MUCOUS THREADS MANY /LPF A (NEGATIVE /LPF) *BACTERIA FEW /HPF A (NEGATIVE /HPF) Blood Bank from 06/17/2016 7:40 AMANTIBODY SCREEN (Indirect Barb) NEG *ABO Group O RH TYPE POS DX Radiology from 06/17/2016 10:50 AMKNEE RIGHT 1/2 VIEWS History: Post Operative total knee arthroplasty. AP and Lateral, In Recovery Room . Technique: Two view knee performed. Priors: None. Findings: Bones A total knee arthroplasty is present. There is no evidence of loosening or fracture. No bony destructive lesion is seen. Joints The prosthesis is in normal anatomic alignment. Soft Tissue Normal. There is a drain in the anterior soft tissues. Impression: Well seated total right knee arthroplasty. Electronically signed by: Dudley Rosales MD Dictated: 06/17/2016 11:02 Problems Encounter Diagnosis * Acute Pain Status:Active. * Fall Risk Status:Active. * Infection Risk Status:Active. * Mobility Impairment Status:Active. * Osteoarthritis of Knee Status:Active. Encounters Encounter Diagnosis * Acute Pain Status:Active. * Fall Risk Status:Active. * Infection Risk Status:Active. * Mobility Impairment Status:Active. * Osteoarthritis of Knee Status:Active. Plan of Care Follow-up Appointments from 06/19/2016 2:05 PM:* #1 Office appointment: : Dr. Hyde * #1 Date/Time : 07/02/2016 1:00 AM * Address # 1 : [facility]: [facility] [place] or Treatment Plan from 06/19/2016 8:45 AM:* Care Management Note : Patient planning to go home today. Arranged for outpatient PT at [facility] beginning June 20 at 3 p.m. Appt card given to patient. Treatment Plan from 06/19/2016 7:43 AM:* Care Management Note : rounded with Bin STEPHEN - patient is anticipated to go home later today pending therapies. Edilma CELIS aware of plan. Treatment Plan from 06/18/2016 11:00 AM:* Care Management Note : Met with patient. Patient lives in [place] with her significant other and is planning to return at discharge. Patient does have a walker and wants to get her outpatient PT with [facility] in [place]. Will arrange for therapy at discharge. Based on number of home meds, patient is a rising risk for readmissions. Treatment Plan from 06/18/2016 8:14 AM:* Care Management Note : Admission status: Inpatient Insurance: Medicaid [place] Patient to Orthopedics following right total knee arthroplasty due to right knee grade 4 osteoarthritis. labs and vital signs noted. Na 135. Glucose 126. Hgb 10.7. VS: 159/94 93 18 99.3 94% RA POC: Consulted Hospitalist for medical management and Trauma Registrar for nutritional recommendations - Ensure 1 can daily. Monitor vital signs with oximetry. PT/OT consulted to evaluate and treat - FWB with walker. Yang and drain dc'd this morning. Segundo Hose, Xarelto, and foot pumps for DVT prevention. Follow labs daily x3. IVF at 80 - SL when tolerating PO without difficulty and IV meds are dc'd. IV Cefazolin x3 for infection prevention. ROPIV/EPI/KETOROLAC/NS 50ML Intraarticular pre-op to help minimize post op pain. Gabapentin, Percocet, Flexeril, Nucynta, and Tramadol given for pain management. IV Zofran and Scopolamine patch given pre op to help minimize post op nausea. Bedside glucose checks. patient meets inpatient per Inpatient procedure list. patient is anticipated to go home Fri or based on therapies, labs, and pain management Procedures * Completed Arthroplasty of Knee, Right, by MD OLIVER HYDE, on 06/17/2016 9: 05 AM * Completed right knee arthroscopy with removal loose bodies and chondroplasty lateral femoral chondyle, Right, by MD ENZO HASSAN, on 02/06/2016 12:05 PM * Completed Procedure Code: 3009791 Procedure Name: not valued, on 02/06/2016 12:00 AM * Completed Procedure Code: 72381 Procedure Name: not valued, on 02/06/2016 12: 00 AM * Completed Right knee arthroscopy with partial lateral menisectomy, Right, by MD ENZO HASSAN, on 12/07/2015 9:38 AM * Completed Procedure Code: 1088771 Procedure Name: not valued, on 12/07/2015 12 :00 AM * Completed Procedure Code: 82113 Procedure Name: not valued, on 12/07/2015 12: 00 AM Immunizations No immunizations administered or ordered. Hospital Course Hospital Discharge Instructions How to care for yourself at home from 06/19/2016 2:05 PM:* Discharge Activity : Activity as tolerated,May Shower,Do not engage in sports, heavy work or heavy lifting until your physician gives permission,No Tub Bath * Discharge Diet : Diet as tolerated * Discharge Wound Care : Notify your physician if the following develops: redness, swelling, drainage or color of drainage changes, odor or increased pain. * Remove dressing in: : Do not remove, until you see your physician * Call your doctor if: : Fever over 101 F or severe chills,Chest pain or other unexplained symptoms,Tingling or numbness develops,A sudden increase or decrease in weight,You have persistent or worsening symptoms,If you have Heart Failure and you gain 3 pounds within 1 week or your symptoms worsen. (Weigh at home tomorrow morning) * Specific Discharge Teaching Instructions provided: : No * Discharge on Warfarin : No Allergies, Adverse Reactions, Alerts * Sulfa (Sulfonamide Antibiotics) causes Hives. * No Latex Allergy. * No IV Contrast Allergy. Medication It is the responsibility of the patient or patient mill representative to confirm the list of medications with either the patient's personal care provider or the patient's follow-up care provider to ensure the patient has an appropriate list of medications to take at home. Discharge medications New medications* rivaroxaban (Xarelto) 10 mg Tablet, Ordered By: MAYCO WILKINS RN Directions: 1 tablet oral daily with dinner Additional Instructions: ATTENTION NURSE/PHARMACIST: START 6-10 HOURS POST OP. * oxyCODONE-acetaminophen 10 mg-325 mg Tablet, Ordered By: MAYCO WILKINS RN Directions: 1 tablet oral every six hours PRN pain Continued medications* FLUoxetine (PROzac) 40 mg Capsule, Ordered By: ISMAEL MARMOLEJO APRN Directions: 2 capsule oral daily every morning * metFORMIN 1,000 mg Tablet, Ordered By: ISMAEL MARMOLEJO APRN Directions: 1 tablet oral twice a day with or after meal * omeprazole 20 mg capsule,delayed release(DR/EC), Ordered By: ISMAEL MARMOLEJO APRN Directions: 1 capsule oral daily before breakfast * QUEtiapine (SEROquel XR) 400 mg Tablet Extended Release 24 hr, Ordered By: ISMAEL MARMOLEJO APRN Directions: 1 tablet oral daily at bedtime * traZODone 100 mg Tablet, Ordered By: ISMAEL MARMOLEJO APRN Directions: 1 tablet oral daily at bedtime PRN insomnia Changed medications* varenicline (Chantix) 1 mg Tablet, Ordered By: ISMAEL MARMOLEJO APRN Directions: 1 tablet oral twice a day Stopped medications* naproxen * multivit,Ca,driz-JW-zvryiy-lut (Complete Multi) 18 mg-500 mcg-300 mcg-250 mcg Tablet Directions: 1 tablet oral daily every morning
--- OUTSIDE RECORDS SUMMARY | 2016-08-31 09:44 | XMS REPORT | Continuity of Care Document ---
Author Author [facility] Organization [facility] Address Unknown Phone Unavailable Care Team Providers Care Principle Industrial Hygienist Name Role Phone ISAIAS GAYTAN MD Primary Care Physician [phone] Insurance Providers Payer Name Policy Number Subscriber Name Relationship [facility] [employer] Plan [id number] Supa Deutsch 19 Self Advance Directives Directive [...] Fumarate 400 Mg PO DAILY 09/03/13 Active Meloxicam 7.5 Mg PO DAILY 10 Qty take with food, do not take any additional Ibuprofen or 11/08/13 Active Hydrocodone Bit/Acetaminophen 1 Tab PO EVERY 4-6 HOURS PRN PAIN 10 Qty 11/08/13 Active Trazodone HCl PO BEDTIME 11/17/13 Active Hydrocodone/Acetaminophen 1-2 Tab PO Every 6 Hours PRN PAIN 20 Qty Active Cyclobenzaprine HCl 1 Tab PO THREE TIMES A DAY PRN SPASMS 30 Qty Active Social History Social History Problem Response Recorded Date/Time Smoking Status Never smoker 09/13/2013 7:34pm Chewing Tobacco Status No 09/13/2013 7:34pm Hx Substance Use No 11/17/2013 1:51pm Hx Alcohol Use No 11/17/2013 1:51pm Hospital Discharge Instructions No hospital discharge instructions. Plan of Care No plan of care. Functional Status Query Response Date Recorded Physical Hygiene Self November 17, 2013 1:51pm Disabilities None November 17, 2013 1:51pm Devices Used None November 17, 2013 1:51pm Dressing Self November 17, 2013 1:51pm Ambulation Self November 17, 2013 1:51pm Diet Self November 17, 2013 1:51pm Mental Status Alert Oriented November 17, 2013 1:51pm Disabilities None November 17, 2013 1:51pm Devices Used None November 17, 2013 1:51pm Physical Hygiene Self November 17, 2013 1:51pm Dressing Self November 17, 2013 1:51pm Ambulation Self November 17, 2013 1:51pm Diet Self November 17, 2013 1:51pm Allergies, Adverse Reactions, Alerts Allergen Type Severity Reaction Status Last Updated Sulfa (Sulfonamide Antibiotics) Allergy Severe HIVES AND SWELLING Active 11/17/13 Red dye Allergy Unknown Active 11/17/13 Immunizations Name Given Type Hx Influenza Vaccination Y 2012 Historical Hx Pneumococcal Vaccination No Historical Hx Influenza Vaccination Y 2012 Historical Vital Signs Acute Vital Signs Vital Response Date/Time Temperature (Fahrenheit) 96.7 deg F (96.8 - 99.1) Temperature (Calculated Celsius) 35.60321 degrees C (36.0 - 37.3) Pulse Rate (adult) 92 bpm (60 - 100) Respiratory Rate 18 breaths/min (10 - 20) O2 Sat by Pulse Oximetry 93 % (90 - 100) Blood Pressure 102/67 mm Hg Height 5 ft 4 in Weight 180 lb Body Mass Index 31.0 kg/m^2 Results [...] Has specimen been collected/obtained? Y Urine Specific [place] September 03, 2013 3:30pm >=1.030 H - [...] collected/obtained? Y Name: SUPA DEUTSCH Unit #: [id number] : 1960 Sex: F Loc / Svc: ED DOS: 11/08/13 Signed Report #: [id number] DIAGNOSTIC IMAGING REPORT TYPE OF EXAM: WRIST RIGHT 3 VIEW Dictated By: SAAD MONGE MD INDICATION: ITS.REASON: right wrist pain ^right wrist pain COMPARISON: none. WRIST RIGHT 3 VIEW: There is no evidence of fracture, dislocation, or joint narrowing. IMPRESSION: Negative x-rays . Procedures No known history of procedures. Encounters Encounter Location Date/Time Departed Emergency Room [facility] 11/17/13 1:33pm Departed Emergency Room [facility] 11/08/13 6:43pm [facility] 10/20/13 9:59am Departed Emergency Room [facility] 09/21/13 2:42pm Departed Emergency Room [facility] 09/13/13 5:09pm Departed Emergency Room [facility] 09/03/13 2:39pm Recent Diagnosis
--- OUTSIDE RECORDS SUMMARY | 2016-08-31 09:44 | XMS REPORT | Continuity of Care Document ---
Author Author [facility] Organization [facility] Address Unknown Phone Unavailable Care Team Providers Care Operators Teacher Name Role Phone ISAIAS GAYTAN MD Primary Care Physician [phone] Insurance Providers Payer Name Policy Number Subscriber Name Relationship [facility] [id number] Supa Deutsch 18 Self Advance Directives Directive [...] Unknown Active Right wrist pain Unknown Active Medications Medication Dose Route Sig Days/Qty Instructions Order Date Discontinued Date Status Fluoxetine Hcl 80 Mg PO DAILY 09/03/13 Active Quetiapine Fumarate 400 Mg PO DAILY 09/03/13 Active Trazodone HCl 100 Mg PO BEDTIME 11/17/13 Active Ranitidine HCl 150 Mg PO DAILY 12/10/13 Active Multivitamin/Iron/Folic Acid 1 Tab PO DAILY 12/10/13 Active Hydrocodone/Acetaminophen 1-2 Tab PO Every 6 Hours PRN PAIN 20 Qty Active Social History Social History Problem Response Recorded Date/Time Smoking Status Never smoker 09/13/2013 7:34pm Chewing Tobacco Status No 09/13/2013 7:34pm Hx Substance Use No 02/09/2014 6:49am Hx Alcohol Use No 02/09/2014 6:49am Has the pt used tobacco in the last 12 months Yes 12/10/2013 10:17am Hospital Discharge Instructions No hospital discharge instructions. Plan of Care No plan of care. Functional Status Query Response Date Recorded Physical Hygiene Self February 09, 2014 6:49am Disabilities None February 09, 2014 6:49am Devices Used None February 09, 2014 6:49am Dressing Self February 09, 2014 6:49am Ambulation Self February 09, 2014 6:49am Diet Self February 09, 2014 6:49am Mental Status Alert Oriented February 09, 2014 6:49am Disabilities None February 09, 2014 6:49am Devices Used None February 09, 2014 6:49am Physical Hygiene Self February 09, 2014 6:49am Dressing Self February 09, 2014 6:49am Ambulation Self February 09, 2014 6:49am Diet Self February 09, 2014 6:49am Allergies, Adverse Reactions, Alerts Allergen Type Severity Reaction Status Last Updated Sulfa (Sulfonamide Antibiotics) Allergy Severe HIVES AND SWELLING Active 02/09/14 Red dye Allergy Unknown HIVES,SWELLING Active 02/09/14 Immunizations Name Given Type Hx Influenza Vaccination Y 02/01 Historical Hx Pneumococcal Vaccination No Historical Hx Influenza Vaccination Y 02/01 Historical Vital Signs Acute Vital Signs Vital Response Date/Time Temperature (Fahrenheit) 96.9 deg F (96.8 - 99.1) Temperature (Calculated Celsius) 36.62182 degrees C (36.0 - 37.3) Pulse Rate (adult) 92 bpm (60 - 100) Respiratory Rate 16 breaths/min (10 - 20) O2 Sat by Pulse Oximetry 94 % (90 - 100) Oxygen Flow Rate 1.00 L/min Blood Pressure 136/85 mm Hg Height 5 ft 4 in Weight 189 lb Body Mass Index 32.0 kg/m^2 Results Test Source Date Result Interp. [...] Has specimen been collected/obtained? Y Urine Specific [place] September 03, 2013 3:30pm >=1.030 H - [...] - Has specimen been collected/obtained? Y Procedures Procedure Status Date Provider(s) COLONOSCOPY AND BIOPSY completed 11/22/13 JARRETT BROWN MD, FACS, CWS CARPAL TUNNEL SURGERY completed 12/13/13 GARLAND HEADLEY MD Encounters Encounter Location Date/Time Registered Emergency Room [facility] 02/09/14 6:39am Departed Emergency Room [facility] 11/17/13 1:33pm Recent Diagnosis
--- NOTE | 2016-08-31 09:45 | NUR ---
PROVIDER DR MARC AT BEDSIDE
--- OUTSIDE RECORDS SUMMARY | 2016-08-31 09:45 | XMS REPORT | Continuity of Care Document ---
Author Author [facility] Organization [facility] Address Unknown Phone Unavailable Support Name Relationship Address Phone MILLY LIRIANO DO Caregiver [facility] [address] [place], [place] [id number] ISAIAS GAYTAN MD Caregiver [address] [place] [address] [phone] ELISE JRUADO Next Of Kin [address] [place] [address] Insurance Providers Payer Name Policy Number Subscriber Name Relationship [facility] Peer[employer] [facility] [id number] Supa Deutsch 19 Self Advance Directives Directive [...] Unknown Active Bilateral thumb pain Unknown Active LLQ abdominal pain Unknown Active Constipation Unknown Active LLQ abdominal pain Unknown Active Medications Medication Dose Route Sig Days/Qty Instructions Order Date Discontinued Date Status Fluoxetine Hcl 80 Mg PO DAILY 09/03/13 Active Quetiapine Fumarate 400 Mg PO DAILY 09/03/13 Active Trazodone HCl 100 Mg PO BEDTIME 11/17/13 Active Ranitidine HCl 150 Mg PO DAILY 12/10/13 Active [Liver Detox] TWICE A DAY 04/30/14 07/02/14 Discontinued Hydrocodone/Apap 7.5/325 Mg 1 Tab PO Every 6 Hours PRN PAIN 20 Qty 02/0207/02/14 Discontinued Lactobacillus Combo No.11 1 Tab PO DAILY 07/02/14 Active Social History Social History Problem Response Recorded Date/Time Chewing Tobacco Status No 09/13/2013 7:34pm Hx Substance Use No 07/02/2014 6:37pm Hx Alcohol Use No 07/02/2014 6:37pm Has the pt used tobacco in the last 12 months Yes 12/10/2013 10:17am Tobacco Usage smoke 09/16/2013 6:29pm Query Response Start Date Stop Date Smoking Status Never smoker Hospital Discharge Instructions No hospital discharge instructions. Plan of Care No plan of care. Functional Status Query Response Date Recorded Physical Hygiene Self July 02, 2014 6:37pm Disabilities Visual July 02, 2014 6:37pm Devices Used Glasses July 02, 2014 6:37pm Dressing Self July 02, 2014 6:37pm Ambulation Self July 02, 2014 6:37pm Diet Self July 02, 2014 6:37pm Mental Status Alert Oriented July 02, 2014 6:37pm Disabilities Visual July 02, 2014 6:37pm Devices Used Glasses July 02, 2014 6:37pm Physical Hygiene Self July 02, 2014 6:37pm Dressing Self July 02, 2014 6:37pm Ambulation Self July 02, 2014 6:37pm Diet Self July 02, 2014 6:37pm Allergies, Adverse Reactions, Alerts Allergen Type Severity Reaction Status Last Updated Sulfa (Sulfonamide Antibiotics) Allergy Severe HIVES AND SWELLING Active 04/30/14 D&c red no. 7 Allergy Unknown HIVES,SWELLING Active 04/30/14 Immunizations Name Given Type Hx Influenza Vaccination Y 02/01 Historical Hx Pneumococcal Vaccination No Historical Hx Influenza Vaccination Y 02/01 Historical Vital Signs Acute Vital Signs Vital Response Date/Time Temperature (Fahrenheit) 97.5 deg F (96.8 - 99.1) Temperature (Calculated Celsius) 36.97504 degrees C (36.0 - 37.3) Pulse Rate (adult) 85 bpm (60 - 100) Respiratory Rate 18 breaths/min (10 - 20) O2 Sat by Pulse Oximetry 96 % (90 - 100) Blood Pressure 98/66 mm Hg Height 5 ft 4 in Weight 201 lb Body Mass Index 34.0 kg/m^2 Results Test Source Date Result Interp. Ref. Range Comments Alanine Aminotransferase (ALT/SGPT) July 02, 2014 7:21pm 30 U/L N 9-52 Albumin July 02, 2014 7:21pm 4.4 G/DL N 3.5-5.0 Albumin/Globulin Ratio July 02, 2014 7:21pm 1.2 RATIO N 1.1-2.2 Alkaline Phosphatase July 02, 2014 7:21pm 126 U/L N 38-126 Amylase Level July 02, 2014 7:21pm 80 U/L N 30-110 Anion Gap July 02, 2014 7:21pm 13 MEQ/L N 5-15 Aspartate Amino Transf (AST/SGOT) July 02, 2014 7:21pm 30 U/L N 14-36 BUN/Creatinine Ratio July 02, 2014 7:21pm 23 RATIO N 6-26 Basophils # (Auto) July 02, 2014 7:21pm 0.0 T/MM3 N 0-0.2 Basophils (%) (Auto) July 02, 2014 7:21pm 0.2 % N 0-2 Blood Urea Nitrogen July 02, 2014 7:21pm 18.0 MG/DL H 7-17 Calcium Level July 02, 2014 7:21pm 9.8 MG/DL N 8.4-10.2 Calculated Osmolality July 02, 2014 7:21pm 277 MOSM/KG N 261-280 Carbon Dioxide Level July 02, 2014 7:21pm 25 MEQ/L N 22-30 Chemistry Specimen Hemolysis July 02, 2014 7:21pm < 15 0-25 0-25: No Hemolysis.26-70: Slight Hemolysis - can falsely elevate K and Urine Protein. 71-285: Moderate Hemolysis - can falsely elevate K, Troponin I, CA 19-9, PTH, CSF GLucose, and Urine Protein, and can falsely decrease Phenytoin. 286-999: Gross Hemolysis - can falsely elevate K, Troponin I, CA 19-9, PTH, CSF Glucose, and Urine Protine, and can falsely decrease Phenytoin. Recommend specimen recollection. Chloride Level July 02, 2014 7:21pm 103 MEQ/L N 98-107 Creatinine July 02, 2014 7:21pm 0.8 MG/DL N 0.7-1.2 Eosinophils # (Auto) July 02, 2014 7:21pm 0.2 T/MM3 N 0-0.5 Eosinophils (%) (Auto) July 02, 2014 7:21pm 1.6 % N 0-4 Globulin July 02, 2014 7:21pm 3.8 G/DL H 2.4-3.6 Glomerular Filtration Rate Calc July 02, 2014 7:21pm 75 - Glucose Level July 02, 2014 7:21pm 162 MG/DL H 65-110 Hematocrit July 02, 2014 7:21pm 41.5 % N 36-46 Hemoglobin July 02, 2014 7:21pm 13.6 GM/DL N 12-16 Icterus Index July 02, 2014 7:21pm < 2 0-7 Immature Granulocyte # (Auto) July 02, 2014 7:21pm 0.02 T/MM3 N 0.00- 0.03 Immature Granulocyte % (Auto) July 02, 2014 7:21pm 0.2 % N 0.0-0.5 Lipase July 02, 2014 7:21pm 316 U/L H 23-300 Lymphocytes # (Auto) July 02, 2014 7:21pm 3.3 T/MM3 N 1-4.8 Lymphocytes (%) (Auto) July 02, 2014 7:21pm 35.2 % N 23-45 Mean Corpuscular Hemoglobin July 02, 2014 7:21pm 31.7 UUG N 26-34 Mean Corpuscular Hemoglobin Concent July 02, 2014 7:21pm 32.8 GM/DL N 31-37 Mean Corpuscular Volume July 02, 2014 7:21pm 96.7 UM3 N 80-100 Mean Platelet Volume July 02, 2014 7:21pm 9.5 UM3 N 9.4-12.4 Monocytes # (Auto) July 02, 2014 7:21pm 0.7 T/MM3 N 0-0.8 Monocytes (%) (Auto) July 02, 2014 7:21pm 7.1 % N 0-9.0 Neutrophils # (Auto) July 02, 2014 7:21pm 5.3 T/MM3 N 1.8-7.7 Neutrophils (%) (Auto) July 02, 2014 7:21pm 55.7 % N 33-66 Platelet Count July 02, 2014 7:21pm 247 T/MM3 N 130-400 Potassium Level July 02, 2014 7:21pm 4.2 MEQ/L N 3.6-5 RDW Standard Deviation July 02, 2014 7:21pm 47.6 FL N 36.9-50.2 Red Blood Count July 02, 2014 7:21pm 4.29 M/MM3 N 4.00-5.20 Sodium Level July 02, 2014 7:21pm 141 MEQ/L N 134-144 Total Bilirubin July 02, 2014 7:21pm 0.30 MG/DL N 0.20-1.30 Total Protein July 02, 2014 7:21pm 8.2 G/DL N 6.3-8.2 Turbidity July 02, 2014 7:21pm < 20 0-20 Urinalysis Comment July 02, 2014 8:20pm Microscopic not ind. - Has specimen been collected/obtained? Y Urine Bilirubin July 02, 2014 8:20pm Negative - Has specimen been collected/obtained? Y Urine Blood July 02, 2014 8:20pm Negative - Has specimen been collected/obtained? Y Urine Collection Type July 02, 2014 8:20pm Voided-not cc-midstr - Has specimen been collected/obtained? Y Urine Color July 02, 2014 8:20pm Yellow - Has specimen been collected/obtained? Y Urine Glucose (UA) July 02, 2014 8:20pm Negative - Has specimen been collected/obtained? Y Urine Ketones July 02, 2014 8:20pm Negative - Has specimen been collected/obtained? Y Urine Leukocyte Esterase July 02, 2014 8:20pm Negative - Has specimen been collected/obtained? Y Urine Nitrite July 02, 2014 8:20pm Negative - Has specimen been collected/obtained? Y Urine Protein July 02, 2014 8:20pm Negative - Has specimen been collected/obtained? Y Urine Specific [place] July 02, 2014 8:20pm >=1.030 H - Has specimen been collected/obtained? Y Urine Turbidity July 02, 2014 8:20pm Clear - Has specimen been collected/obtained? Y Urine Urobilinogen July 02, 2014 8:20pm 0.2 EU/DL - Has specimen been collected/obtained? Y Urine pH July 02, 2014 8:20pm 5.5 - Has specimen been collected/ obtained? Y White Blood Count July 02, 2014 7:21pm 9.5 T/MM3 N 4.5-11.0 Procedures Procedure Status Date Provider(s) EMERGENCY DEPT VISIT completed 04/30/14 Encounters Encounter Location Date/Time Registered Emergency Room [facility] 07/02/14 4:55pm Departed Emergency Room [facility] 04/30/14 8:34am Recent Diagnosis
--- OUTSIDE RECORDS SUMMARY | 2016-08-31 09:46 | XMS REPORT | Continuity of Care Document ---
Author Author [facility] Organization [facility] Address Unknown Phone Unavailable Support Name Relationship Address Phone KIMBERLI CASTRO Caregiver [address] [place] [address] Unavailable LUISITO PAT DO Caregiver [address] [place] [address] Unavailable RHIANNON ELISE Next Of Kin [address] [place] [address] Insurance Providers Guarantor Supa Deutsch Address [address] [place] [address] Email [email or web address] Payer [employer] Policy Number [id number] Subscriber's Name Supa Deutsch Raymon Relationship 18 Self Effective Date 16 Expiration Date 16 Advance Directives Directive Response Recorded Date/Time Advanced Directives Type None 09/13/13 7:30pm Chief Complaint and Reason for Visit Chief Complaint Post-Surgical Problem Reason for Visit Bleeding Postoperative pain of right knee Problems Active Problems Medical Problem Onset Date Status BARBARA (acute kidney injury) Unknown Resolved Abdominal pain Unknown Acute Anxiety Unknown Chronic C. difficile colitis Unknown Acute Chronic back pain Unknown Chronic Chronic kidney disease, stage 2, mildly decreased GFR Unknown Chronic Depression Unknown Chronic Diarrhea Unknown Acute Diverticulitis Unknown Acute History of Clostridium difficile colitis ~04/2015 Acute Hypercholesteremia Unknown Chronic Hypokalemia Unknown Resolved Hypotension Unknown Resolved Ileus, unspecified Unknown Acute Leukocytosis Unknown Acute Maculopapular rash, localized Unknown Acute Nausea & vomiting Unknown Resolved Obesity (BMI 30.0-34.9) Unknown Chronic PTSD (post-traumatic stress disorder) Unknown Chronic Sciatica Unknown Chronic Sepsis Unknown Resolved Suspected DVT (deep vein thrombosis) Unknown Type 2 diabetes mellitus Unknown Chronic Past Problems Medical Problem Onset Date Bilateral thumb pain Unknown Bleeding Unknown Carpal tunnel syndrome Unknown Chronic pain of right knee Unknown Constipation Unknown Knee pain Unknown Knee pain Unknown LLQ abdominal pain Unknown Lumbar back sprain Unknown Lumbar back sprain Unknown Pain, dental Unknown Postoperative pain of right knee Unknown Quadriceps strain Unknown Right wrist pain Unknown Salivary disorder Unknown Sciatic pain Unknown Sinusitis, acute Unknown UTI (urinary tract infection) Unknown Medications Current Home Medications Medication Dose Units Route Directions Days Qty Instructions Start Date Calcium Polycarbophil (Fiber Tabs) 625 Mg Tablet 1 Tab Oral Daily 06/20/16 Fluoxetine Hcl (Prozac) 40 Mg Capsule 80 Mg Oral Daily 05/28/15 Lidocaine (Lidoderm) 1 Each Adh..patch 1 Patch Transderm As Needed 05/04/16 Metformin Hcl 1,000 Mg Tablet 1,000 Mg Oral Twice Daily With Meals 07/18/15 Multivitamin (Daily Multiple Vitamin) 1 Each Tablet 1 Tab Oral Daily 05/08/15 Omeprazole 20 Mg Capsule.dr 20 Mg Oral Before Breakfast 07/18/15 Oxycodone Hcl/Acetaminophen (Percocet 10-325 Mg Tablet) 10-325 Tablet 1-2 Tab Oral Every 6 Hours 20 Tablet 05/04/16 Quetiapine Fumarate (Seroquel Xr) 400 Mg Tab.sr.24h 400 Mg Oral Bedtime 09/03/13 Trazodone Hcl 100 Mg Tablet 100 Mg Oral Twice A Day as needed for Prn Orders 11/17/13 Varenicline Tartrate (Chantix) 1 Each Tab.ds.pk 06/20/16 Xarelto 06/20/16 Past Home Medications Medication Directions Ordered Status Acetaminophen/Hydrocodone Bitart ([place] 7.5-325 Tablet) 1 Each Tablet, 1 Tab Oral Every 6 Hours as needed for Pain 04/30/14 Discontinued Cephalexin 500 Mg Tablet, 1 Tab Oral Three Times A Day 09/29/14 Discontinued Ciprofloxacin Hcl 500 Mg Tablet, 1 Tab Oral Twice A Day 12/09/14 Discontinued Fluoxetine Hcl (Prozac) 40 Mg Capsule, 80 Mg Oral Daily 09/03/13 Discontinued Hydrocodone/Acetaminophen ([place] 5-325 Tablet) 1 Each Tablet, 1-2 Tab Oral Every 4 Hours as needed for Pain 12/09/14 Discontinued Liver Detox , Twice A Day 04/30/14 Discontinued Metformin Hcl 1,000 Mg Tablet, 1 Tab Oral Twice Daily With Meals 09/29/14 Discontinued Metronidazole 500 Mg Tablet, 500 Mg Oral Every 8 Hours for C. Difficile 05/11 Discontinued Naproxen (Naprosyn) 250 Mg Tablet, As Needed 09/29/14 Discontinued Phenazopyridine Hcl (Pyridium) 100 Mg Tablet, 95 Mg Oral Three Times A Day Discontinued Polyethylene Glycol 3350 (Miralax) 17 Gm Packet, 17 Gm Oral Daily for Constipation 05/16/15 Discontinued Prednisone 20 Mg Tablet, 40 Mg Oral Twice Daily With Meals 07/18/15 Discontinued Vancomycin Hcl 250 Mg/5 Ml Solution, 125 Mg Oral Q6h/0300,0900,1500,2100 for C. Difficile 05/16/15 Discontinued Social History Social History Problem Response Recorded Date/Time Onset Date Status Chewing Tobacco Status No 09/13/2013 7:34pm Not Applicable Not Applicable Hx Substance Use No 06/20/2016 8:11am Not Applicable Not Applicable Hx Alcohol Use No 06/20/2016 8:11am Not Applicable Not Applicable Has the pt used tobacco in the last 12 months Yes 05/28/2015 12:12am Not Applicable Not Applicable Tobacco Usage none 05/28/2015 8:56am Not Applicable Not Applicable Query Response Start Date Stop Date Smoking Status Never smoker Hospital Discharge Instructions No hospital discharge instructions. Plan of Care Discharge Date 06/20/16 9:10am Disposition 01 DISCHARGED HOME, SELF-CARE Condition at Discharge Improved Instructions/Education Provided Acute Wound Care (ED) Prescriptions See Medication Section Referrals KIMBERLI CASTRO Order Date: 1 Day Address: [address] [place] [address] [address] [facility] [place] [address] Note: Care Plan and Goals Physician Care Plan Problem: Post-operative Bleeding Goal: Follow up with primary care provider Instructions: Take medications and follow care plan as discussed/written Functional Status No functional status results. Allergies, Adverse Reactions, Alerts Allergen Type Severity Reaction Status Last Updated Sulfa (Sulfonamide Antibiotics) Allergy Severe HIVES AND SWELLING Active 12/16/15 D&c red no. 7 Allergy Unknown HIVES,SWELLING Active 12/16/15 Immunizations Query Response on File Recorded Date/Time Hx Influenza Vaccination Y 02/0205/28/15 12:12am Hx Pneumococcal Vaccination No 05/28/15 12:12am Hx Influenza Vaccination Y 02/0205/28/15 12:12am Influenza Vaccine Hx 2016 06/20/16 8:11am Tetanus Diptheria Vaccine History UNKNOWN 06/20/16 8:11am Tdap Vaccine Hx up to date 06/20/16 6:00am Vital Signs Acute Vital Signs Vital Response Date/Time Temperature (Fahrenheit) 98.6 deg F (96.8 - 99.1) 06/20/2016 9:10am Temperature (Calculated Celsius) 37.99866 degrees C (36.0 - 37.3) 06/20/2016 9:10am Pulse Rate (adult) 98 bpm (60 - 100) 06/20/2016 9:10am Respiratory Rate 20 breaths/min (10 - 20) 06/20/2016 9:10am O2 Sat by Pulse Oximetry 97 % (90 - 100) 06/20/2016 9:10am Blood Pressure 141/74 mm Hg 06/20/2016 9:10am Height (Feet) 5 feet 06/20/2016 6:14am Height (Inches) 4.50 inches 06/20/2016 6:14am Weight (Kilograms) 80.800 kg 06/20/2016 6:14am Body Mass Index (BMI) 30.0 06/20/2016 6:14am Results Laboratory Results Test Name Result Units Flags Reference Collection Date/Time Result Date/ Time Comments Prothromb Time International Ratio 0.99 0.76-1.04 06/13/2016 4:17pm 06/13/2016 4:37pm THERAPUTIC RANGE=2.00-3.00 FOR ANTI-THROMBOSIS THERAPUTIC RANGE=2.50-3.50 FOR IMPLANTED VALVE Activated Partial Thromboplast Time 28.8 SEC 24-36 06/13/2016 4:pm 4:37pm Urine Collection Type CLEANCATCH-MIDSTREAM 06/13/2016 4:2016 4:29pm Urine Color YELLOW YELLOW 06/13/2016 4:06/13/2016 4:29pm Urine Turbidity CLEAR CLEAR 06/13/2016 4:06/13/2016 4:29pm Urine Specific [place] 1.025 1.015-1.025 06/13/2016 4:pm 2016 4:29pm Urine pH 5.5 5.0-8.0 06/13/2016 4:pm 06/13/2016 4:29pm Urine Leukocyte Esterase NEGATIVE NEGATIVE 06/13/2016 4:2016 4:29pm Urine Nitrite NEGATIVE NEGATIVE 06/13/2016 4:pm 06/13/2016 4:29pm Urine Protein NEGATIVE NEGATIVE 06/13/2016 4:06/13/2016 4:29pm Urine Glucose (UA) NEGATIVE NEGATIVE 06/13/2016 4:17pm 06/13/2016 4: 29pm Urine Ketones NEGATIVE NEGATIVE 06/13/2016 4:17pm 06/13/2016 4:29pm Urine Urobilinogen 0.2 EU/DL NORMAL 06/13/2016 4:17pm 06/13/2016 4: 29pm Urine Bilirubin NEGATIVE NEGATIVE 06/13/2016 4:17pm 06/13/2016 4: 29pm Urine Blood NEGATIVE NEGATIVE 06/13/2016 4:pm 06/13/2016 4:29pm Urine WBC NONE SEEN /HPF 0-5 06/13/2016 4:17pm 06/13/2016 4:36pm Urine RBC NONE SEEN /HPF 0-3 06/13/2016 4:17pm 06/13/2016 4:36pm Urine Squamous Epithelial Cells 5-10 06/13/2016 4:17pm 06/13/2016 4 :36pm Urine Bacteria 1+ H NEGATIVE 06/13/2016 4:17pm 06/13/2016 4:36pm Urine Mucus PRESENT 06/13/2016 4:17pm 06/13/2016 4:36pm Urine Culture Indicated CULT NOT INDICATED 06/13/2016 4:17pm 2016 4:36pm White Blood Count 12.3 T/MM3 H 4.5-11.0 06/20/2016 6:57am 06/20/2016 7: 10am Red Blood Count 2.80 M/MM3 L 4.00-5.20 06/20/2016 6:57am 06/20/2016 7: 10am Hemoglobin 8.8 GM/DL L 12-16 06/20/2016 6:57am 06/20/2016 7:10am Hematocrit 26.8 % L 36-46 06/20/2016 6:57am 06/20/2016 7:10am Mean Corpuscular Volume 95.7 UM3 80-100 06/20/2016 6:57am 06/20/2016 7: 10am Mean Corpuscular Hemoglobin 31.4 UUG 26-34 06/20/2016 6:57am 2016 7:10am Mean Corpuscular Hemoglobin Concent 32.8 GM/DL 31-37 06/20/2016 6:57am 06/20/2016 7:10am RDW Standard Deviation 47.4 FL 36.9-50.2 06/20/2016 6:57am 06/20/2016 7 :10am Platelet Count 257 T/MM3 130-400 06/20/2016 6:57am 06/20/2016 7:10am Mean Platelet Volume 9.3 UM3 L 9.4-12.4 06/20/2016 6:57am 06/20/2016 7: 10am Neutrophils (%) (Auto) 67.1 % H 33-66 06/20/2016 6:57am 06/20/2016 7: 10am Lymphocytes (%) (Auto) 25.2 % 23-45 06/20/2016 6:57am 06/20/2016 7: 10am Monocytes (%) (Auto) 5.2 % 0-9.0 06/20/2016 6:57am 06/20/2016 7:10am Eosinophils (%) (Auto) 2.1 % 0-4 06/20/2016 6:57am 06/20/2016 7:10am Basophils (%) (Auto) 0.1 % 0-2 06/20/2016 6:57am 06/20/2016 7:10am Immature Granulocyte % (Auto) 0.3 % 0.0-0.5 06/20/2016 6:57am 2016 7:10am Absolute Neutrophils (auto) 8.3 T/MM3 H 1.8-7.7 06/20/2016 6:57am 2016 7:10am Absolute Lymphocytes (auto) 3.1 T/MM3 1-4.8 06/20/2016 6:57am 2016 7:10am Absolute Monocytes (auto) 0.6 T/MM3 0-0.8 06/20/2016 6:57am 06/20/2016 7:10am Absolute Eosinophils (auto) 0.3 T/MM3 0-0.5 06/20/2016 6:57am 2016 7:10am Absolute Basophils (auto) 0.0 T/MM3 0-0.2 06/20/2016 6:57am 06/20/2016 7:10am Absolute Immature Granulocyte (auto 0.04 T/MM3 H 0.00-0.03 06/20/2016 6: 57am 06/20/2016 7:10am Icterus Index < 2 0-7 06/20/2016 6:57am 06/20/2016 7:22am Chemistry Specimen Hemolysis < 15 0-25 06/20/2016 6:57am 06/20/2016 7 :22am 0-25: Specimen Exhibited No Hemolysis. Turbidity < 20 0-20 06/20/2016 6:57am 06/20/2016 7:22am Sodium Level 135 MEQ/L 134-144 06/20/2016 6:57am 06/20/2016 7:22am Potassium Level 4.3 MEQ/L 3.6-5 06/20/2016 6:57am 06/20/2016 7:22am Chloride Level 101 MEQ/L 98-107 06/20/2016 6:57am 06/20/2016 7:22am Carbon Dioxide Level 24 MEQ/L 22-30 06/20/2016 6:57am 06/20/2016 7: 22am Anion Gap 10 MEQ/L 5-15 06/20/2016 6:57am 06/20/2016 7:22am Blood Urea Nitrogen 12.0 MG/DL 7-17 06/20/2016 6:57am 06/20/2016 7: 22am Creatinine 1.0 MG/DL 0.7-1.2 06/20/2016 6:57am 06/20/2016 7:22am BUN/Creatinine Ratio 12 RATIO 6-26 06/20/2016 6:57am 06/20/2016 7:22am Glomerular Filtration Rate Calc 58 06/20/2016 6:57am 06/20/2016 7: 22am Glucose Level 122 MG/DL H 65-110 06/20/2016 6:57am 06/20/2016 7:22am Calculated Osmolality 261 MOSM/KG 261-280 06/20/2016 6:57am 06/20/2016 7:22am Calcium Level 9.5 MG/DL 8.4-10.2 06/20/2016 6:57am 06/20/2016 7:22am Total Bilirubin 0.50 MG/DL 0.20-1.30 06/20/2016 6:57am 06/20/2016 7: 22am Alkaline Phosphatase 67 U/L 38-126 06/20/2016 6:57am 06/20/2016 7:22am Total Protein 7.3 G/DL 6.3-8.2 06/20/2016 6:57am 06/20/2016 7:22am Albumin 3.9 G/DL 3.5-5.0 06/20/2016 6:57am 06/20/2016 7:22am Globulin 3.4 G/DL 2.4-3.6 06/20/2016 6:57am 06/20/2016 7:22am Albumin/Globulin Ratio 1.1 RATIO 1.1-2.2 06/20/2016 6:57am 06/20/2016 7 :22am Aspartate Amino Transf (AST/SGOT) 21 U/L 14-36 06/20/2016 6:57am 2016 7:22am Alanine Aminotransferase (ALT/SGPT) 29 U/L 9-52 06/20/2016 6:57am 06/20 7:22am Procedures Procedure Status Date Provider(s) X-ray exam of knee 3 Completed 05/04/16 Emergency dept visit Completed 05/04/16 Chest x-ray 2vw frontal&latl Completed 06/10/16 Routine venipuncture Completed 06/13/16 Metabolic panel total ca Completed 06/13/16 Urinalysis auto w/scope Completed 06/13/16 Prothrombin time Completed 06/13/16 Thromboplastin time partial Completed 06/13/16 Encounters Encounter Location Arrival/Admit Date Discharge/Depart Date Attending Provider Departed Emergency Room [facility] 06/20/16 5:55am 06/20/16 9: 10am LUISITO PAT DO Registered [facility] 06/13/16 4:07pm EULOGIO CLARK APRN Registered [facility] 06/10/16 3:28pm KIMBERLI CASTRO Departed Emergency Room [facility] 05/04/16 12:25pm 05/04/16 2: 00pm ENEDINA ZHAO MD Recent Diagnosis
--- OUTSIDE RECORDS SUMMARY | 2016-08-31 09:46 | XMS REPORT ---
Author Author [employer], SYSTEM Organization Unknown Address Unknown Phone Unavailable Care Team Providers Care Track Laying Supervisor Name Role Phone DO DUGGAN ROBERT PP Unavailable Reason For Visit Reason for Visit from 02/06/2016 10:20 AM:* Pt Stated Reason for Adm : "right knee arthroscopy" Chief Complaint RIGHT KNEE PAIN,RIGHT KNEE ARTHROSCO Social History Social History from 02/06/2016 12:52 PM:* Tobacco Use? : Current Everyday Smoker Social History from 02/06/2016 10:20 AM:* Tobacco Use? : Current Everyday Smoker Functional Status Functional Status from 02/06/2016 1:32 PM:* LOC : Alert Functional Status from 02/06/2016 1:26 PM:* LOC : Alert Functional Status from 02/06/2016 12:43 PM:* LOC : Alert Functional Status from 02/06/2016 10:20 AM:* LOC : Alert * Oriented To : Person,Place,Time,Event * Weight Bearing Status : Full * Assist Level : Independent * # Assists : Independent Vital Signs Hospital Vital Signs from 02/06/2016 2:00 PM:* Height : 5/4 ft,in * Pulse : 98 * Respirations : 20 * BP : 143/93 Hospital Vital Signs from 02/06/2016 1:45 PM:* Height : 5/4 ft,in * Pulse : 76 * Respirations : 20 * BP : 133/67 Hospital Vital Signs from 02/06/2016 1:31 PM:* Height : 5/4 ft,in * Temperature : 97.5 F * Pulse : 85 * Respirations : 16 * BP : 129/91 Hospital Vital Signs from 02/06/2016 1:25 PM:* Heart Rate : 82 * Resp Rate : 11 Hospital Vital Signs from 02/06/2016 1:20 PM:* Heart Rate : 82 * Resp Rate : 12 * Systolic BP (mmHg) : 122 * Diastolic BP (mmHg) : 88 * Mean BP (mmHg) : 102 * O2 Saturation (%) : 94 Hospital Vital Signs from 02/06/2016 1:15 PM:* Heart Rate : 82 * Resp Rate : 14 * Systolic BP (mmHg) : 125 * Diastolic BP (mmHg) : 86 * Mean BP (mmHg) : 98 * O2 Saturation (%) : 91 Hospital Vital Signs from 02/06/2016 1:10 PM:* Heart Rate : 81 * Resp Rate : 13 * Systolic BP (mmHg) : 123 * Diastolic BP (mmHg) : 89 * Mean BP (mmHg) : 102 * O2 Saturation (%) : 90 Hospital Vital Signs from 02/06/2016 1:05 PM:* Heart Rate : 85 * Resp Rate : 25 * Systolic BP (mmHg) : 104 * Diastolic BP (mmHg) : 72 * Mean BP (mmHg) : 86 * O2 Saturation (%) : 90 Hospital Vital Signs from 02/06/2016 1:00 PM:* Heart Rate : 85 * Resp Rate : 11 * Systolic BP (mmHg) : 121 * Diastolic BP (mmHg) : 84 * Mean BP (mmHg) : 98 * O2 Saturation (%) : 97 Hospital Vital Signs from 02/06/2016 12:55 PM:* Heart Rate : 86 * Resp Rate : 15 * Systolic BP (mmHg) : 122 * Diastolic BP (mmHg) : 88 * Mean BP (mmHg) : 99 * O2 Saturation (%) : 92 Hospital Vital Signs from 02/06/2016 12:50 PM:* Heart Rate : 86 * Resp Rate : 14 * Systolic BP (mmHg) : 116 * Diastolic BP (mmHg) : 81 * Mean BP (mmHg) : 93 * O2 Saturation (%) : 95 Hospital Vital Signs from 02/06/2016 12:45 PM:* Heart Rate : 80 * Resp Rate : 9 * Systolic BP (mmHg) : 123 * Diastolic BP (mmHg) : 86 * Mean BP (mmHg) : 100 * O2 Saturation (%) : 97 Hospital Vital Signs from 02/06/2016 12:41 PM:* Temp : 97.7 * Heart Rate : 84 * Resp Rate : 17 * Systolic BP (mmHg) : 119 * Diastolic BP (mmHg) : 79 * Mean BP (mmHg) : 92 * O2 Saturation (%) : 97 Hospital Vital Signs from 02/06/2016 10:38 AM:* Weight : 79.9/ kg * Height : 5/4 ft,in * Temperature : 97.7 F * Pulse : 84 * Respirations : 16 * BP : 133/96 Hospital Vital Signs from 02/06/2016 10:20 AM:* Weight : 77.9/ kg * Height : 5/4 ft,in Results Problems Encounter Diagnosis * Fall Risk Status:Active. Encounters Encounter Diagnosis * Fall Risk Status:Active. Plan of Care Follow-up Appointments from 02/06/2016 12:52 PM:* #1 Office appointment: : Dr. Hassan * #1 Date/Time : 02/12/2016 2:00 PM * Address # 1 : [facility]: [facility] [address] [place], [place]- or Procedures * Completed right knee arthroscopy with removal loose bodies and chondroplasty lateral femoral chondyle, Right, by MD ENZO HASSAN, on 02/06/2016 12:05 PM * Completed Right knee arthroscopy with partial lateral menisectomy, Right, by MD ENZO HASSAN, on 12/07/2015 9:38 AM * Completed Procedure Code: [id number] Procedure Name: not valued, on 12/07/2015 12 :00 AM * Completed Procedure Code: [id number] Procedure Name: not valued, on 12/07/2015 12: 00 AM Immunizations No immunizations administered or ordered. Hospital Course Hospital Discharge Instructions How to care for yourself at home from 02/06/2016 12:52 PM:* Discharge Activity : Activity as tolerated,May Shower,Do not engage in sports, heavy work or heavy lifting until your physician gives permission * Do not drive or operate machinery for: : first 24 hours after procedure or when taking narcotic pain medications * Discharge Diet : Diet as tolerated * Discharge Diet: : avoid spicy and/or greasy foods for the first day for this may cause nausea * Discharge Wound Care : Change dressings as necessary,Notify your physician if the following develops: redness, swelling, drainage or color of drainage changes , odor or increased pain. * Remove dressing [...] Allergy. * No IV Contrast Allergy. Medication Medication reconciliation has not been performed.
--- OUTSIDE RECORDS SUMMARY | 2016-08-31 09:46 | XMS REPORT | Continuity of Care Document ---
Author Author [facility] LIVE Organization [facility] LIVE Address Unknown Phone Unavailable Care Team Providers Care Director Of Software Engineering Name Role Phone ISAIAS GAYTAN MD Primary Care Physician [phone] Insurance Providers Payer Name Policy Number Subscriber Name Relationship [facility] [employer] Plan [id number] Supa Deutsch 18 Self Advance Directives Directive Response Recorded Date/Time Advanced Directives Type None 09/13/13 7:30pm Ordered Resuscitation Status Full Code 11/19/13 4:45pm Problems Medical Problems Problem Onset Date Status [...] Mg PO DAILY 09/03/13 Active Trazodone HCl PO BEDTIME 11/17/13 Active Ranitidine HCl 11/22/13 Active Social History Social History Problem Response Recorded Date/Time Smoking Status Never smoker 09/13/2013 7:34pm Chewing Tobacco Status No 09/13/2013 7:34pm Hx Substance Use No 11/22/2013 11:23am Hx Alcohol Use No 11/22/2013 11:23am Has the pt used tobacco in the last 12 months No 11/22/2013 11:23am Hospital Discharge Instructions No hospital discharge instructions. [...] Immunizations Name Given Type Hx Influenza Vaccination No Historical Hx Pneumococcal Vaccination No Historical Hx Influenza Vaccination No Historical Vital Signs Acute Vital Signs Vital Response Date/Time Temperature (Fahrenheit) 98.0 deg F (96.8 - 99.1) Temperature (Calculated Celsius) 36.24493 degrees C (36.0 - 37.3) Temperature Source Temporal Pulse Rate (adult) 86 bpm (60 - 100) Respiratory Rate 16 breaths/min (10 - 20) O2 Sat by Pulse Oximetry 95 % (90 - 100) Blood Pressure 138/81 mm Hg Blood Pressure Source Automatic Cuff Height 5 ft 4.5 in Weight 182 lb Body Mass Index 30.0 kg/m^2 Results Test Source Date Result Interp. [...] Has specimen been collected/obtained? Y Urine Specific [place] September 03, 2013 3:30pm >=1.030 H - [...] collected/obtained? Y Name: SUPA DEUTSCH Unit #: [id number] : 1960 Sex: F Loc / Svc: ED DOS: 11/08/13 Signed Report #: [id number] DIAGNOSTIC IMAGING REPORT TYPE OF EXAM: WRIST RIGHT 3 VIEW Dictated By: SAAD MONGE MD INDICATION: ITS.REASON: right wrist pain ^right wrist pain COMPARISON: none. WRIST RIGHT 3 VIEW: There is no evidence of fracture, dislocation, or joint narrowing. IMPRESSION: Negative x-rays . Procedures Procedure Status Date Provider(s) Colonoscopy with polypectomy and biopsy completed 11/22/13 JARRETT BROWN MD, FACS, CWS Encounters Encounter Location Date/Time Departed Emergency Room [facility] 11/17/13 1:33pm Departed Emergency Room [facility] 11/08/13 6:43pm [facility] 10/20/13 9:59am Departed Emergency Room [facility] 09/21/13 2:42pm Departed Emergency Room [facility] 09/13/13 5:09pm Departed Emergency Room [facility] 09/03/13 2:39pm
--- OUTSIDE RECORDS SUMMARY | 2016-08-31 09:46 | XMS REPORT | Summary of Care ---
Author Author Ab Hyde M.D. Unknown Address Unknown Phone Unavailable Care Team Providers Care Warp Bleaching Vat Tender Name Role Phone Manuel Tavarez D.O. Unavailable [...] Active Localized osteoarthritis of right knee (715.36, M17.11) Status: Active Effusion of bursa of right knee (719.06, M25.461) Status: Active Right knee pain (719.46, M25.561) Status: Active Need for prophylactic measure (V07.9, Z29.9) Status: Active Post-op pain (338.18, G89.18) Status: [...] BEDTIME NEEDED. * Quantity: 30 Refills: 0 Barrett Briones, Ab Sena * Chiki 02-Jul-2016 Active Allergies and Adverse [...] Details Planned Observations Planned Goals not documented Planned Encounters Appointment; Provider: Ab Hyde M.D. On 20-Aug-2016 14:00 Interventions Provided Medication Changes* Oxycodone-Acetaminophen 10-325 MG Oral Tablet - Renew Instructions Name Dates Details Instructions not documented Encounters Appointment; Ab Hyde M.D. Encounter Diagnosis: Problem not documented On 02-Jul-2016 13:00 Appointment; Ab Hyde M.D. Encounter Diagnosis: Problem [...]
--- OUTSIDE RECORDS SUMMARY | 2016-08-31 09:46 | XMS REPORT ---
Author Author [facility], SYSTEM Organization Unknown Address Unknown Phone Unavailable Care Team Providers Care Smoke Chaser Name Role Phone DO DUGGAN ROBERT PP Unavailable Reason For Visit Reason for Visit from 12/07/2015 7:46 AM:* Pt Stated Reason for Adm : Right knee scope Chief Complaint MENISCUS TEAR,RIGHT KNEE ARTHROSCO Social History Social History from 12/07/2015 10:15 AM:* Tobacco Use? : Former Smoker Social History from 12/07/2015 7:46 AM:* Tobacco Use? : Former Smoker Functional Status Functional Status from 12/07/2015 11:22 AM:* LOC : Alert Functional Status from 12/07/2015 11:00 AM:* LOC : Alert * Oriented To : Person,Place,Time Functional Status from 12/07/2015 10:21 AM:* LOC : Drowsy Functional Status from 12/07/2015 7:46 AM:* LOC : Alert * Oriented To : Person,Place,Time * Weight Bearing Status : Full * Assist Level : Independent * # Assists : Independent Vital Signs Hospital Vital Signs from 12/07/2015 11:45 AM:* Height : 5/4 ft,in * Temperature : 97.8 F * Pulse : 85 * Respirations : 16 * BP : 128/83 Hospital Vital Signs from 12/07/2015 11:30 AM:* Height : 5/4 ft,in * Pulse : 86 * Respirations : 16 * BP : 129/96 Hospital Vital Signs from 12/07/2015 11:23 AM:* Height : 5/4 ft,in * Temperature : 97.1 F * Pulse : 87 * Respirations : 16 * BP : 131/92 Hospital Vital Signs from 12/07/2015 11:10 AM:* Heart Rate : 83 * Resp Rate : 12 * Systolic BP (mmHg) : 126 * Diastolic BP (mmHg) : 91 * Mean BP (mmHg) : 101 * O2 Saturation (%) : 100 Hospital Vital Signs from 12/07/2015 11:05 AM:* Temp : 97.8 * Heart Rate : 83 * Resp Rate : 10 * Systolic BP (mmHg) : 124 * Diastolic BP (mmHg) : 94 * Mean BP (mmHg) : 104 * O2 Saturation (%) : 99 Hospital Vital Signs from 12/07/2015 11:00 AM:* Heart Rate : 83 * Resp Rate : 10 * Systolic BP (mmHg) : 109 * Diastolic BP (mmHg) : 82 * Mean BP (mmHg) : 94 * O2 Saturation (%) : 99 Hospital Vital Signs from 12/07/2015 10:55 AM:* Heart Rate : 81 * Resp Rate : 12 * Systolic BP (mmHg) : 117 * Diastolic BP (mmHg) : 86 * Mean BP (mmHg) : 98 * O2 Saturation (%) : 100 Hospital Vital Signs from 12/07/2015 10:50 AM:* Temp : 97.7 * Heart Rate : 88 * Resp Rate : 10 * Systolic BP (mmHg) : 127 * Diastolic BP (mmHg) : 85 * Mean BP (mmHg) : 102 * O2 Saturation (%) : 92 Hospital Vital Signs from 12/07/2015 10:45 AM:* Heart Rate : 87 * Resp Rate : 13 * Systolic BP (mmHg) : 142 * Diastolic BP (mmHg) : 97 * Mean BP (mmHg) : 111 * O2 Saturation (%) : 96 Hospital Vital Signs from 12/07/2015 10:40 AM:* Heart Rate : 85 * Resp Rate : 13 * Systolic BP (mmHg) : 141 * Diastolic BP (mmHg) : 98 * Mean BP (mmHg) : 108 * O2 Saturation (%) : 100 Hospital Vital Signs from 12/07/2015 10:35 AM:* Temp : 97.6 * Heart Rate : 88 * Resp Rate : 15 * Systolic BP (mmHg) : 145 * Diastolic BP (mmHg) : 100 * Mean BP (mmHg) : 115 * O2 Saturation (%) : 100 Hospital Vital Signs from 12/07/2015 10:30 AM:* Heart Rate : 89 * Resp Rate : 12 * Systolic BP (mmHg) : 150 * Diastolic BP (mmHg) : 95 * Mean BP (mmHg) : 114 * O2 Saturation (%) : 100 Hospital Vital Signs from 12/07/2015 10:25 AM:* Heart Rate : 88 * Resp Rate : 12 * Systolic BP (mmHg) : 143 * Diastolic BP (mmHg) : 103 * Mean BP (mmHg) : 116 * O2 Saturation (%) : 100 Hospital Vital Signs from 12/07/2015 10:20 AM:* Temp : 97.9 * Heart Rate : 88 * Resp Rate : 16 * Systolic BP (mmHg) : 140 * Diastolic BP (mmHg) : 95 * Mean BP (mmHg) : 114 * O2 Saturation (%) : 100 Hospital Vital Signs from 12/07/2015 7:46 AM:* Weight : 77.9/ kg * Height : 5/4 ft,in Hospital Vital Signs from 12/07/2015 7:44 AM:* Weight : 77.9/ kg * Height : 5/4 ft,in * Temperature : 97.5 F * Pulse : 94 * Respirations : 16 * BP : 108/84 Results Chemistry from 12/07/2015 8:30 AMSODIUM 139 MMOL/L (136-145 MMOL/L) POTASSIUM 3.9 MMOL/L (3.5-5.1 MMOL/L) CHLORIDE 103 MMOL/L (98-107 MMOL/L) TCO2 29.1 MMOL/L (21.0-32.0 MMOL/L) *ANION GAP 6.9 MMOL/L L (8.0-16.0 MMOL/L) BUN 12 MG/DL (7-18 MG/DL) CREATININE 1.04 MG/DL H (0.55-1.02 MG/DL) *BUN/CREATININE RATIO 11.5 (9.1-17.0 ) GLUCOSE 113 MG/DL H (65-99 MG/DL) *GFR EST NON AFR VENEZUELAN 61 ML/MIN *GFR EST AFR AMER 70 ML/MIN CALCIUM 9.1 MG/DL (8.5-10.1 MG/DL) Problems Encounter Diagnosis No relevant problems exist. Encounters Encounter Diagnosis No relevant problems exist. Plan of Care Follow-up Appointments from 12/07/2015 10:15 AM:* #1 Office appointment: : Dr. Hassan * #1 Date/Time : 12/13/2015 12:45 PM * Address # 1 : [facility]: [address] [place]- [phone] or Procedures * Completed Right knee arthroscopy with partial lateral menisectomy, Right, by MD ENZO HASSAN, on 12/07/2015 9:38 AM Immunizations No immunizations administered or ordered. Hospital Course Hospital Discharge Instructions How to care for yourself at home from 12/07/2015 10:15 AM:* Discharge Activity : Activity as tolerated,May Shower * Do not drive or operate machinery for: : 24 hours * Discharge Diet : As before hospitalization,Diet as tolerated * Discharge Diet: : spicy or fatty foods may cause nausea today * Discharge Wound Care : Keep dressings dry,Notify your physician if the following develops: redness, swelling, drainage or color of drainage changes, odor or increased pain. * Remove dressing in: : 2 days (Friday) * Call your doctor if: : Fever over 101 F or severe chills,Chest pain or other unexplained symptoms,Tingling or numbness develops,A sudden increase or decrease in weight,You have persistent or worsening symptoms * Specific Discharge Teaching Instructions provided: : No * Discharge on Warfarin : No Allergies, Adverse Reactions, Alerts * Sulfa (Sulfonamide Antibiotics) causes Hives. * No Latex Allergy. * No IV Contrast Allergy. Medication Medication reconciliation has not been performed.
--- OUTSIDE RECORDS SUMMARY | 2016-08-31 09:47 | XMS REPORT | Continuity of Care Document ---
Author Author [facility] LIVE Organization [facility] LIVE Address Unknown Phone Unavailable Support Name Relationship Address Phone ISAIAS GAYTAN MD Caregiver [address] [place] [phone] JANY STILL MD Caregiver [address] [place] [place] [phone] BISI DIALLO Next Of Kin Unknown [phone] Insurance Providers Payer Name Policy Number Subscriber Name Relationship [facility] State Plan [id number] GetSup[employer] Raymon 18 Self Advance Directives Directive Response Recorded Date/Time Advanced Directives Type None 09/13/13 7:30pm Problems Medical Problems Problem Onset Date Status Sciatic pain Unknown Active Sciatic pain Unknown Active Salivary disorder Unknown Active Pain, dental Unknown Active Salivary disorder Unknown Active Carpal tunnel syndrome Unknown Active Right wrist pain Unknown Active Carpal tunnel syndrome Unknown Active Medications Medication Dose Route Sig Days/Qty Instructions Order Date Discontinued Date Status Fluoxetine Hcl 80 Mg PO DAILY 09/03/13 Active Quetiapine Fumarate 400 Mg PO DAILY 09/03/13 Active Meloxicam 7.5 Mg PO DAILY 10 Qty take with food, do not take any additional Ibuprofen or 11/08/13 Active Hydrocodone Bit/Acetaminophen 1 Tab PO EVERY 4-6 HOURS PRN PAIN 10 Qty 11/08/13 Active Social History Social History Problem Response Recorded Date/Time Smoking Status Never smoker 09/13/2013 7:34pm Chewing Tobacco Status No 09/13/2013 7:34pm Hx Substance Use No 11/08/2013 7:39pm Hx Alcohol Use No 11/08/2013 7:39pm Hospital Discharge Instructions No hospital discharge instructions. Plan of Care No plan of care. Functional Status Query Response Date Recorded Physical Hygiene Self November 08, 2013 7:39pm Disabilities None November 08, 2013 7:39pm Devices Used Wheelchair November 08, 2013 7:39pm Dressing Self November 08, 2013 7:39pm Ambulation Self November 08, 2013 7:39pm Diet Self November 08, 2013 7:39pm Mental Status Alert November 08, 2013 7:39pm Disabilities None November 08, 2013 7:39pm Devices Used Wheelchair November 08, 2013 7:39pm Physical Hygiene Self November 08, 2013 7:39pm Dressing Self November 08, 2013 7:39pm Ambulation Self November 08, 2013 7:39pm Diet Self November 08, 2013 7:39pm Allergies, Adverse Reactions, Alerts Allergen Type Severity Reaction Status Last Updated Sulfa (Sulfonamide Antibiotics) Allergy Severe HIVES AND SWELLING Active 11/08/13 Red dye Allergy Unknown Active 11/08/13 Immunizations Name Given Type Hx Influenza Vaccination Y 2012 Historical Hx Pneumococcal Vaccination No Historical Hx Influenza Vaccination Y 2012 Historical Vital Signs Acute Vital Signs Vital Response Date/Time Temperature (Fahrenheit) 98.1 deg F (96.8 - 99.1) Temperature (Calculated Celsius) 36.40484 degrees C (36.0 - 37.3) Pulse Rate (adult) 99 bpm (60 - 100) Respiratory Rate 18 breaths/min (10 - 20) O2 Sat by Pulse Oximetry 95 % (90 - 100) Blood Pressure 111/77 mm Hg Height 5 ft 4.5 in Weight 192 lb Body Mass Index 32.0 kg/m^2 Results [...] Has specimen been collected/obtained? Y Urine Specific [place] September 03, 2013 3:30pm >=1.030 H - [...] Encounters Encounter Location Date/Time Departed Emergency Room [facility] 11/08/13 6:43pm Registered Clinic [facility] 10/20/13 9:59am Departed Emergency Room [facility] 09/21/13 2:42pm Departed Emergency Room [facility] 09/13/13 5:09pm Departed Emergency Room [facility] 09/03/13 2:39pm Recent Diagnosis
--- NOTE | 2016-08-31 10:06 | ERPDOC ---
Departure Disposition Decision Date: August 31, 2016 Disposition Decision Time: 10:06 Disposition: 01 DISCHARGED HOME, SELF-CARE Impression Impression Impression: Primary Impression: History of Clostridium difficile colitis Additional Impression: Diarrhea Severity: Moderate Condition: Stable Seen By: Physician only Referrals: KIMBERLI CASTRO (Family) Patient Instructions: Acute Nausea and Vomiting (ED) Problems/Meds/Labs Reviewed?: Yes Medications reviewed and manag: Yes Additional Instructions: Flagyl 500 mg, 4 tablets daily for 10 days. You have an order for stool study to rule out Clostridium difficile. Please bring the stool back in and drop it off in the next 24 hours. If your test does not show Clostridium difficile, we would recommend you stop the Flagyl. Follow up care ordered?: Yes Mental Status: Alert, Oriented Scripts Metronidazole (Flagyl) 500 Mg Tablet 1 TAB PO QID, #56 TAB Prov: BURTON MARC MD 08/31/16 HPI - Abdominal Pain General Chief Complaint: Nausea,Vomiting,Diarrhea Stated Complaint: POSS C-DIF Time Seen by Provider: 10:03 HPI - Abdominal Pain Initial Comments 55-year-old female with diarrhea for 4 days. She has had one previous episode C. difficile diarrhea. Her boyfriend was just recently diagnosed C. difficile after taking a course of antibiotics. He is now taking Flagyl. She has the exact same symptoms she did previously when she had C. difficile diagnosed and culture. 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 She would like a prescription for Flagyl so that she can go back having at least 24 hours of antibiotics. She would prefer not to have to wait to give a stool and get a test, she states she is typically having diarrhea about every 6 hours, it is watery and voluminous. She does have body aches, no fever. Last time she had C. difficile, she had a be hospitalized for several days. Allergies: Coded Allergies: Sulfa (Sulfonamide Antibiotics) (Verified Allergy, Severe, HIVES AND SWELLING, 08/31/16) red dye (Verified Allergy, Unknown, HIVES,SWELLING, 08/31/16) Past History Patient Surgical History FELIPE and BSO Bilateral carpal tunnel repair Past Medical History Metabolic: diabetes GI: GERD, other Female: UTI Neurological: neuropathy Musculoskeletal: back pain Psychological: anxiety, depression Surgical History Reproductive/: hysterectomy Joint: carpal tunnel, knee Family History Family PMH: FOUND: CAD, [place], depression, hypertension Vaccines Hx Influenza Vaccination: Yes (02/02) Hx Pneumococcal Vaccination: No Social History # of Years: 25 Substance Use Type: does not use Alcohol Intake: none Sexuality: male partner Review of Systems GI Upper Abdomen: see HPI Lower Abdomen: see HPI All other Systems All Other Systems: Reviewed and Negative Physical Exam General General Nourishment: well nourished, well developed, appears stated age, no acute distress Vitals and Pain First Documented Vital Signs Date Time Temp Pulse Resp B/P Pulse Ox O2 Delivery O2 Flow Rate FiO2 08/31/16 09:40 98.1 100 18 137/97 99 Room Air Weight: Kilograms: 77.000 Height (feet): 5 Height (inches): 5.50 Triage Pain Scale: Normal Exams: Chest/Resp: Clear all chavez CV: Regular rate and rhythm Abdomen (brief) Abdominal Brief: FOUND: bowel normo active x4, soft, tender (diffuse) Differential Diagnoses Considering: Other (viral gastroenteritis, C. difficile colitis, inflammatory colitis, other cause of diarrhea.) Progress Progress Progress Best practice would be to wait for stool and obtain C. difficile PCR. However as she is going to work on Friday, and has had previous infection, and feels like this has the same symptoms. I would be willing to write her prescription for Flagyl. I did order stool studies for C. difficile with PCR and we'll send the order with her she can bring back in and dropped off. BURTON MARC MD August 31, 2016 10:06
[2016-08-31] MEDS ORDERED: METR500T PO (10:08)
--- OUTSIDE RECORDS SUMMARY | 2016-08-31 10:15 | XMS REPORT | Continuity of Care Document ---
Author Author [facility] Organization [facility]IVE Address Unknown Phone Unavailable Support Name Relationship Address Phone SHARIF MEADOWS MD Caregiver [facility] [address] [place] [address] Unavailable ISAIAS GAYTAN MD Caregiver [address] [place] [address] [phone] ELISE JURADO Next Of Kin [address] [place] [address] Insurance Providers Payer Name Policy Number Subscriber Name Relationship [facility] Site Intelligence [facility] [id number] Supa Deutsch 18 Self Advance Directives Directive [...] Has specimen been collected/obtained? Y Urine Specific [place] September 03, 2013 3:30pm >=1.030 H - [...] Encounters Encounter Location Date/Time Departed Emergency Room [facility] 04/30/14 8:34am Departed Emergency Room [facility] 02/09/14 6:39am Recent Diagnosis
--- OUTSIDE RECORDS SUMMARY | 2016-08-31 10:16 | XMS REPORT ---
Author Author [facility], SYSTEM Organization Unknown Address Unknown Phone Unavailable Care Team Providers Care Repair Specialist Name Role Phone DO OLGA LIDIA, SHARIF SIMPSON Unavailable Reason For Visit Chief Complaint BLODY FLUID CELL COUNT [id number], JOINT,FLUID FOR CRYSTALS 7611, FLUID CULTURE,[id number] , GRAM STAIN [id number] Social History Functional Status Vital Signs Results Problems Encounter Diagnosis No relevant problems exist. Encounters Encounter Diagnosis No relevant problems exist. Plan of Care Procedures * Completed Right knee arthroscopy with partial lateral menisectomy, Right, by MD ENZO HASSAN, on 12/07/2015 9:38 AM * Completed Procedure Code: [id number] Procedure Name: not valued, on 12/07/2015 12 :00 AM * Completed Procedure Code: [id number] Procedure Name: not valued, on 12/07/2015 12: 00 AM Immunizations No immunizations administered or ordered. Hospital Course Hospital Discharge Instructions Allergies, Adverse Reactions, Alerts * Sulfa (Sulfonamide Antibiotics) causes Hives. * Latex Allergy has not been assessed. * IV Contrast Allergy has not been assessed. Medication Medication reconciliation has not been performed.
--- OUTSIDE RECORDS SUMMARY | 2016-08-31 10:16 | XMS REPORT | Continuity of Care Document ---
Author Author [facility] Organization [facility] Address Unknown Phone Unavailable Care Team Providers Care Medical Apparatus Model Maker Name Role Phone ISAIAS GAYTAN MD Primary Care Physician [phone] Insurance Providers Payer Name Policy Number Subscriber [...] F (96.8 - 99.1) Temperature (Calculated Celsius) 36.84859 degrees C (36.0 - 37.3) Temperature Source [...] Has specimen been collected/obtained? Y Urine Specific [place] September 03, 2013 3:30pm >=1.030 H - [...] collected/obtained? Y Name: SUPA DEUTSCH Unit #: [id number] : 1960 Sex: F Loc / Svc: ED DOS: 11/08/13 Signed Report #: [id number] DIAGNOSTIC IMAGING REPORT TYPE OF EXAM: WRIST RIGHT 3 VIEW Dictated By: SAAD OMNGE MD INDICATION: ITS.REASON: right wrist pain ^right wrist pain COMPARISON: none. WRIST RIGHT 3 VIEW: There is no evidence of fracture, dislocation, or joint narrowing. IMPRESSION: Negative x-rays . Procedures Procedure Status Date Provider(s) COLONOSCOPY AND BIOPSY completed 11/22/13 JARRETT BROWN MD, FACS, CWS Carpal tunnel release completed 12/13/13 GARLAND HEADLEY MD Encounters Encounter Location Date/Time Departed Emergency Room [facility] 11/17/13 1:33pm Departed Emergency Room [facility] 11/08/13 6:43pm Registered Clinic [facility] 10/20/13 9:59am Departed Emergency Room [facility] 09/21/13 2:42pm
--- OUTSIDE RECORDS SUMMARY | 2016-08-31 10:17 | XMS REPORT | Continuity of Care Document ---
Author Author [facility] Organization [facility] Address Unknown Phone Unavailable Care Team Providers Care Research Editor Name Role Phone ISAIAS GAYTAN MD Primary Care Physician [phone] Insurance Providers Payer Name Policy Number Subscriber Name Relationship [facility] [employer] Plan [id number] Supa Deutsch 19 Self Advance Directives Directive [...] F (96.8 - 99.1) Temperature (Calculated Celsius) 35.48257 degrees C (36.0 - 37.3) Pulse Rate [...] Has specimen been collected/obtained? Y Urine Specific [place] September 03, 2013 3:30pm >=1.030 H - [...] collected/obtained? Y Name: SUPA DEUTSCH Unit #: [id number] : 1960 Sex: F Loc / Svc: ED DOS: 11/08/13 Signed Report #: [id number] DIAGNOSTIC IMAGING REPORT TYPE OF EXAM: WRIST RIGHT 3 VIEW Dictated By: SAAD MONGE MD INDICATION: ITS.REASON: right wrist pain ^right wrist pain COMPARISON: none. WRIST RIGHT 3 VIEW: There is no evidence of fracture, dislocation, or joint narrowing. IMPRESSION: Negative x-rays . Procedures No known history of procedures. Encounters Encounter Location Date/Time Departed Emergency Room [facility] 11/17/13 1:33pm Departed Emergency Room [facility] 11/08/13 6:43pm [facility] 10/20/13 9:59am Departed Emergency Room [facility] 09/21/13 2:42pm Departed Emergency Room [facility] 09/13/13 5:09pm Departed Emergency Room [facility] 09/03/13 2:39pm Recent Diagnosis
--- OUTSIDE RECORDS SUMMARY | 2016-08-31 10:17 | XMS REPORT ---
Author Author [facility], SYSTEM Organization Unknown Address Unknown Phone Unavailable Care Team Providers Care Stores Laborer Name Role Phone DO DUGGAN ROBERT PP [...] H (65-99 MG/DL) *GFR EST NON AFR MOROCCAN 72 ML/MIN *GFR EST AFR AMER 84 [...] H (65-99 MG/DL) *GFR EST NON AFR MOROCCAN 63 ML/MIN *GFR EST AFR AMER 74 [...] 1:00 AM * Address # 1 : [facility]: [facility] [place]- [phone] or Treatment Plan from 06/19/2016 8:45 AM:* Care Management Note : Patient planning to go home today. Arranged for outpatient PT at [facility] beginning June 20 at 3 p.m. Appt card given to patient. Treatment Plan from 06/19/2016 7:43 AM:* Care Management Note : rounded with Bin STEPHEN - patient is anticipated to go home later today pending therapies. Edilma CELIS aware of plan. Treatment Plan from 06/18/2016 11:00 AM:* Care Management Note : Met with patient. Patient lives in [place] with her significant other and is planning to return at discharge. Patient does have a walker and wants to get her outpatient PT with [facility] in [place]. Will arrange for therapy at discharge. Based on number of home meds, patient is a rising risk for readmissions. Treatment Plan from 06/18/2016 8:14 AM:* Care Management Note : Admission status: Inpatient Insurance: Medicaid [place] Patient to Orthopedics following right total knee arthroplasty due to right knee grade 4 osteoarthritis. labs and vital signs noted. Na 135. Glucose 126. Hgb 10.7. VS: 159/94 93 18 99.3 94% RA POC: Consulted Hospitalist for medical management and Insurance Account Manager for nutritional recommendations - Ensure 1 can [...] lateral femoral chondyle, Right, by MD ENZO HASSNA, on 02/06/2016 12:05 PM * Completed Procedure Code: [id number] Procedure Name: not valued, on 02/06/2016 12:00 AM * Completed Procedure Code: 16787 Procedure Name: not valued, on 02/06/2016 12: 00 AM * Completed Right knee arthroscopy with partial lateral menisectomy, Right, by MD ENZO HASSAN, on 12/07/2015 9:38 AM * Completed Procedure Code: [id number] Procedure Name: not valued, on 12/07/2015 12 :00 AM * Completed Procedure Code: 92956 Procedure Name: not valued, on 12/07/2015 12: [...] the responsibility of the patient or patient patient services representative to confirm the list of medications [...] twice a day Stopped medications* naproxen * multivit,Ca,vrbj-PV-uilbvb-lut (Complete Multi) 18 mg-500 mcg-300 mcg-250 mcg Tablet Directions: 1 tablet oral daily every morning
--- OUTSIDE RECORDS SUMMARY | 2016-08-31 10:17 | XMS REPORT | Continuity of Care Document ---
Author Author [facility] Organization [facility] Address Unknown Phone Unavailable Allergies Active Description [...] - 06/18/16 05:14 *GFR EST NON AFR MOZAMBICAN 63 mL/min NRG *GRFA EST AFR AMER [...] - 06/19/16 05:04 *GFR EST NON AFR MOZAMBICAN 72 mL/min NRG *GRFA EST AFR AMER 84 mL/min NRG Encounters
--- OUTSIDE RECORDS SUMMARY | 2016-08-31 10:18 | XMS REPORT | Continuity of Care Document ---
Author Author [facility] Organization [facility] Address Unknown Phone Unavailable Care Team Providers Care Buckram Sewer Name Role Phone ISAIAS GAYTAN MD Primary Care Physician [phone] Insurance Providers Payer Name Policy Number Subscriber Name Relationship [facility] [id number] Supa Deutsch 19 Self Advance Directives Directive [...] F (96.8 - 99.1) Temperature (Calculated Celsius) 36.83263 degrees C (36.0 - 37.3) Pulse Rate [...] Has specimen been collected/obtained? Y Urine Specific [place] September 03, 2013 3:30pm >=1.030 H - [...] Encounters Encounter Location Date/Time Registered Emergency Room [facility] 02/09/14 6:39am Departed Emergency Room [facility] 11/17/13 1:33pm Recent Diagnosis
--- OUTSIDE RECORDS SUMMARY | 2016-08-31 10:18 | XMS REPORT | Continuity of Care Document ---
Author Author [facility] Organization [facility] Address Unknown Phone Unavailable Support Name Relationship Address Phone MILLY LIRIANO DO Caregiver [facility] [address] [place], [place] [id number] ISAIAS GAYTAN MD Caregiver [address] [place] [address] [phone] ELISE JURADO Next Of Kin [address] [place] [address] Insurance Providers Payer Name Policy Number Subscriber Name Relationship [facility] [employer] [facility] [id number] Supa Deutsch 19 Self Advance Directives Directive [...] F (96.8 - 99.1) Temperature (Calculated Celsius) 36.32529 degrees C (36.0 - 37.3) Pulse Rate [...] Has specimen been collected/obtained? Y Urine Specific [place] July 02, 2014 8:20pm >=1.030 H - [...] Encounters Encounter Location Date/Time Registered Emergency Room [facility] 07/02/14 4:55pm Departed Emergency Room [facility] 04/30/14 8:34am Recent Diagnosis
[2016-08-31 10:19] VITALS: BP 137/97; PULSE 100; RESP 18; TEMP 98.1; O2SAT 99
--- OUTSIDE RECORDS SUMMARY | 2016-08-31 10:19 | XMS REPORT ---
Author Author [facility], SYSTEM Organization Unknown Address Unknown Phone Unavailable Care Team Providers Care Proteomics Scientist Name Role Phone DO DUGGAN ROBERT PP [...] 2:00 PM * Address # 1 : [facility]: [facility] [place] [place], [place]- [phone] or Procedures * Completed right knee arthroscopy with removal loose bodies and chondroplasty lateral femoral chondyle, Right, by MD ENZO HASSAN, on 02/06/2016 12:05 PM * Completed Right knee arthroscopy with partial lateral menisectomy, Right, by MD ENZO HASSAN, on 12/07/2015 9:38 AM * Completed Procedure Code: [id number] Procedure Name: not valued, on 12/07/2015 12 :00 AM * Completed Procedure Code: [id number] Procedure Name: not valued, on 12/07/2015 12: [...]
--- OUTSIDE RECORDS SUMMARY | 2016-08-31 10:19 | XMS REPORT ---
Author Author [facility], SYSTEM Organization Unknown Address Unknown Phone Unavailable Care Team Providers Care Systems Security Analyst Name Role Phone DO DUGGAN ROBERT PP [...] (65-99 MG/DL) *GFR EST NON AFR MOROCCAN 61 ML/MIN *GFR EST AFR AMER 70 ML/MIN CALCIUM 9.1 MG/DL (8.5-10.1 MG/DL) Problems Encounter Diagnosis No relevant problems exist. Encounters Encounter Diagnosis No relevant problems exist. Plan of Care Follow-up Appointments from 12/07/2015 10:15 AM:* #1 Office appointment: : Dr. Hassan * #1 Date/Time : 12/13/2015 12:45 PM * Address # 1 : [facility]: [address] [place]- or Procedures * Completed Right knee arthroscopy [...]
--- OUTSIDE RECORDS SUMMARY | 2016-08-31 10:19 | XMS REPORT | Continuity of Care Document ---
Author Author [facility] Organization [facility] Address Unknown Phone Unavailable Care Team Providers Care Drive Man Name Role Phone ISAIAS GAYTAN MD Primary Care Physician [phone] Insurance Providers Payer Name Policy Number Subscriber Name Relationship [facility] [employer] Plan [id number] Supa Deutsch 19 Self Advance Directives Directive [...] F (96.8 - 99.1) Temperature (Calculated Celsius) 36.24537 degrees C (36.0 - 37.3) Temperature Source [...] Has specimen been collected/obtained? Y Urine Specific [place] September 03, 2013 3:30pm >=1.030 H - [...] collected/obtained? Y Name: SUPA DEUTSCH Unit #: [id number] : 1960 Sex: F Loc / Svc: ED DOS: 11/08/13 Signed Report #: [id number] DIAGNOSTIC IMAGING REPORT TYPE OF EXAM: WRIST [...] Encounters Encounter Location Date/Time Departed Emergency Room [facility] 11/17/13 1:33pm Departed Emergency Room [facility] 11/08/13 6:43pm [facility] 10/20/13 9:59am Departed Emergency Room [facility] 09/21/13 2:42pm Departed Emergency Room [facility] 09/13/13 5:09pm Departed Emergency Room [facility] 09/03/13 2:39pm
--- OUTSIDE RECORDS SUMMARY | 2016-08-31 10:20 | XMS REPORT | Continuity of Care Document ---
Author Author [facility] Organization [facility] Address Unknown Phone Unavailable Support Name Relationship Address Phone ISAIAS GAYTAN MD Caregiver [address] [place] [phone] JANY STILL MD Caregiver [address] [place] [place] [phone] BISI DIALLO Next Of Kin Unknown [phone] Insurance Providers Payer Name Policy Number Subscriber Name Relationship [facility] State Plan [id number] [employer] 19 Self Advance Directives Directive [...] F (96.8 - 99.1) Temperature (Calculated Celsius) 36.77946 degrees C (36.0 - 37.3) Pulse Rate [...] Has specimen been collected/obtained? Y Urine Specific [place] September 03, 2013 3:30pm >=1.030 H - [...] Encounters Encounter Location Date/Time Departed Emergency Room [facility] 11/08/13 6:43pm Registered Clinic [facility] 10/20/13 9:59am Departed Emergency Room [facility] 09/21/13 2:42pm Departed Emergency Room [facility] 09/13/13 5:09pm Departed Emergency Room [facility] 09/03/13 2:39pm Recent Diagnosis
== END 2016-08-31 10:19 | disposition home or self-care (01) ==
LOC: ED 09:38
DX: R19.7 Diarrhea, unspecified (principal); Z87.19 Personal history of other diseases of the digestive system

== ENCOUNTER → 2016-08-31 | Outpatient (CLI) | payer MEDICAID ==
[~2016-08-31] MED LIST: CALC625T32 PO; FLUO40CA7 PO; LIDO700A3 TD; METF10002 PO; METR500T PO; MULT-37 PO; OMEP20CA10 PO; OXYC1TAB72 PO; QUET400T5 PO; TRAZ-173 PO; VARE1TAB21; XARELTO
== END ==
LOC: LAB 21:27
PROVIDERS: ATTEND Family Medicine
DX: R19.7 Diarrhea, unspecified (principal)
CPT/HCPCS: 87507